=== PATIENT | female | born 1970 | race Caucasian/White ===

== ENCOUNTER 2024-04-12 11:34 | Observation (INO) ==
--- NOTE | 2024-04-12 15:14 | XRay Report ---
XR chest 1V portable Genie Riddle CLINICAL HISTORY: Chest pain TECHNIQUE: Single frontal radiograph of the chest was obtained. Comparison: None available at the time of this dictation. FINDINGS: No lines and tubes are seen. The cardiomediastinal silhouette is normal. The lungs are clear. No evid ence of pleural effusion or pneumothorax. IMPRESSION: No acute chest disease. ACT 112: Negative or not required by law. Electronically signed by: Kayden Walsh M.D. 04/12/2024 12:52 PM
--- NOTE | 2024-04-12 15:18 | History & Physical Report ---
<Statement entered by Carlos Umana, - 04/12/24 18:03> I have seen and examined the patient and have discussed the case with the provider above. I have reviewed the advanced practitioner's documentation, and I agree with, and take responsibility for that plan of care. Patient was seen and examined while still in the ED. Patient extremely anxious. Exam: Generally: Nontoxic Lungs: clear CV: S1-S2 Assessment: Patient with acute chest pain and mildly elevated troponin in the setting of severe anxiety and recent discontinuation of her medications. Plan of care as outlined below Date of Service April 12, 2024 Assessment & Plan (1) Chest pain: Plan: Sinus tachycardia Patient is 53 year old female with PMH HTN, depression, anxiety, asthma, MS, hypothyroidism, chronic pain on chronic opioids, interstitial cystitis, tobacco use presented to ER with c/o chest pain x 1 day. EKG sinus tachycardia, ST depression anterior lateral leads Was given 324 mg aspirin and route. Upon ER arrival noted to have sinus tachycardia and patient appeared anxious. Was given Ativan in ER with reported resolution of chest discomfort D-dimer negative. Troponin 42-->35 R/O ACS. Risk factors: HTN, tobacco use, FH. DDx: anxiety, recent disc ontinuation of medications Repeat EKG in am Will trend troponin Echo Lipid panel in am. Plan to resume atorvastatin Daily aspirin Will likely need to resume metoprolol tartrate Cardiology consult (2) Anxiety and depression: (3) Suicidal ideations: Plan: Denies recent suicide attempt. Passive reports of feeling better off but denies current plan Voluntarily admitted at the [facility] place on suicide precautions for now Psychiatry consult Patient was on citalopram, bupropion. Self stopped 1 week ago. Patient voices does not want to be on these medications currently. Will hold for now pending psychiatry recommendations Plan to resume lorazepam on as-needed basis. Previously was using scheduled however has not used for the past week Will start trial of trazodone at bedtime for difficulties with sleep (4) Hypothyroidism: (5) Abnormal TSH: Plan: TSH: 0.05. Patient stopped levothyroxine 1 week ago. Would plan to hold levothyroxine Will need TSH monitored (6) HTN (hypertension): Plan: Previously prescribed metoprolol tartrate 50 mg twice daily however this has not been filled since January. Patient states has not taken for the past week Monitor BP As above consider restarting metoprolol tartrate (7) HLD (hyperlipidemia): Plan: Restart atorvastatin (8) Multiple sclerosis: Plan: History multiple sclerosis diagnosed 2020 on MRI per outpatient neurology records. Reported chronic memory issues Not on disease modifying medications per patient preference Follows with neurolog[place] [facility] Patient reports ongoing memory issues but denies any other neurological symptoms at this time (9) Chronic pain: Plan: Reported chronic right ankle and foot pain and chronic suprapubic pain, interstitial cystitis On chronic oxycodone. Patient states has not taken for the past week. Will hold and monitor at this time (10) Asthma: Plan: No noted wheezing. No apparent asthma exacerbation currently Continue home inhalers Will do Xopenex as needed for now secondary to tachycardia (11) Interstitial cystitis: Plan: Continue Elmiron (12) Tobacco abuse: Plan: Nicotine patch Smoking cessation encouraged (13) GERD (gastroesophageal reflux disease): Plan: Reported prior reflux symptoms. Was on PPI in past. Patient states has not been taking recently and feels has not had reflux symptoms recently Monitor. May need to consider H2 mariano or PPI DVT Prophylaxis Lovenox SQ Full Code as per discussion with pt Follows with Dr Castorena in [place], [place] for routine care Pt was seen and care coordinated with Dr Umana. See addendum I spent a total of 80 minutes reviewing notes, outpatient records, labs, medication, coordinating, documenting and providing care for this patient excluding time spent in the performance of separately billed services. History of Present Illness Chief Complaint: CP Primary Care Provider: NO PCP Patient is 53 year old female with PMH HTN, depression, anxiety, asthma, MS, hypothyroidism, chronic pain on chronic opioids, interstitial cystitis, tobacco use presented to ER with c/o chest pain x 1 day. History obtained from patient and outpatient chart review. Patient reports SOB with exertion x 6 months that She feels is secondary to sedentary lifestyle. Patient states yesterday was [facility] with her boyfriend. She states while driving they got lost several times and her boyfriend was becoming angry. She reports she started to get anxious and started having left chest squeezing and felt that her neck was "being pulled down". She also felt like her heart was pounding. She denies noting irregular rhythm sensation. She states police escorted them to the [facility]. Patient reports has had intermittent episodes of heart pounding and squeezing sensation to left chest since being at the [facility] last night which continued this morning. She told staff this morning and they recommended ER evaluation. Denies history chest pain in past. Patient unsure of cardiac history or cardiac diagnoses but states was placed on metoprolol tartrate by PCP for what she believes as blood pressure control. Patient states one week ago she decided to stop taking all her medication. She reports history depression and suicidal ideations and behaviors in past. Per outpatient records history of Seroquel overdose as suicide attempt in past. Patient reports son one year ago. After that describes panic attacks with squeezing sensation of neck and feeling very anxious. Reports has counselor and states has worked through things and hasn't been feeling as anxious. She is on lorazepam TID and states over past several months has been using at bedtime only. Reports past 6 months with worsening depression. Feels down and sad. Intermittent crying. Loss of interest in doing things. Has been sitting or lying in bed all day. Only gets up to use bathroom. She has reports has only been showering once a month. States spoke to her counselor yesterday and decided to seek treatment at the [facility] for depression. Patient states she checked herself into the [facility] yesterday. She states she often feels that she wants to and wants to be with her son. She denies any recent suicide attempt and denies any recent or current plan to harm herself. Patient reports chronic right ankle pain and chronic suprapubic pain and is on oxycodone TID. States has chronic wheezing. Denies fever/chills, diaphoresis, N/V/D/C, KIMBROUGH, dizziness, syncope, vision changes, orthopnea, cough, sore throat, choking, otalgia, rhinorrhea, increased abdominal pain, paresthesias, weakness, extremity edema, rashes, hematuria, urinary frequency. Allergies Allergy/AdvReac Type Severity Reaction Status Date / Time sumatriptan [From Imitrex] Allergy Chest Pain Verified 04/12/24 15:23 morphine AdvReac agitation Verified 04/12/24 16:40 sulfamethoxazole AdvReac nausea, Verified 04/12/24 15:23 [From vomiting Sulfamethoxazole-Trimethoprim] trimethoprim AdvReac nausea, Verified 04/12/24 15:23 [From vomiting Sulfamethoxazole-Trimethoprim] Home Medications Medication Instructions Recorded Confirmed Type albuterol sulfate 90 mcg/actuation 2 puff inhalation Q4H 04/12/24 04/12/24 History aerosol inhaler aspirin 81 mg capsule 81 mg PO DAILY 04/12/24 04/12/24 History atorvastatin 40 mg tablet 40 mg PO DAILY 04/12/24 04/12/24 History bupropion HCl 150 mg tablet,12 hr 150 mg PO BID 04/12/24 04/12/24 History sustained-release cholecalciferol (vitamin D3) 1,250 50,000 unit PO WK 04/12/24 04/12/24 History mcg (50,000 unit) capsule citalopram 40 mg tablet 40 mg PO DAILY 04/12/24 04/12/24 History estradiol 2 mg tablet 2 mg PO DAILY 04/12/24 04/12/24 History fluticasone 250 mcg-salmeterol 50 1 inh inhalation DAILY 04/12/24 04/12/24 History mcg/dose blistr powdr for inhalation ipratropium 20 mcg-albuterol 100 2 puff inhalation BID 04/12/24 04/12/24 History mcg/actuation mist for inhalation (Combivent Respimat) levothyroxine 175 mcg tablet 175 mcg PO DAILY 04/12/24 04/12/24 History lorazepam 0.5 mg tablet 0.5 mg PO TID 04/12/24 04/12/24 History metoprolol tartrate 50 mg tablet 50 mg PO BID 04/12/24 04/12/24 History oxycodone 10 mg tablet 20 mg PO QID 04/12/24 04/12/24 History pentosan polysulfate sodium 100 mg 100 mg PO BID 04/12/24 04/12/24 History capsule (Elmiron) Past Med/Surg History Problem List (Updated 04/12/24 @ 21:27 by Tana Johnson PA-C) Abnormal TSH Chest pain Interstitial cystitis Asthma Tobacco abuse Chronic pain Hypothyroidism Multiple sclerosis GERD (gastroesophageal reflux disease) HLD (hyperlipidemia) HTN (hypertension) Suicidal ideations Anxiety and depression Medical History (Updated 04/12/24 @ 21:27 by Tana Johnson PA-C) History of electroconvulsive therapy 10/18/2013- Dr Jason Crespo [place] [facility] 10/21/2013 - Dr Zachariah Haddad at [facility] Surgical History (Updated 04/12/24 @ 15:25 by Tana Johnson PA-C) History of section History of hysterectomy History of appendectomy Family History (Updated 04/12/24 @ 15:26 by Tana Johnson PA-C) Father Heart disease [place] Other Depression Diabetes Hypertension Social History (Updated 04/12/24 @ 21:03 by Tana Johnson PA-C) Smoking Status: Current every day smoker Tobacco Type: Cigarettes packs per day: 1; Second Hand Exposure: No; Do You Dip or Chew Tobacco: No; Hx Alcohol Use: No Hx Substance Use: No Beliefs That Will Affect Care: None Current Living Situation: Alone Feels Safe at Home: Yes Assistive Devices: None Review of Systems Review of Systems: All systems reviewed & are unremarkable except as noted in HPI & below Physical Exam Physical Exam: General: no distress, WDWN Head: normocephalic, atraumatic Eyes: PERRL, EOM's intact, conjunctiva non-injected, anicteric ENT: normal inspection external ears, nose, mucous membranes moist Neck: supple, trachea midline, non-tender Lungs: clear, no respiratory distress, no wheezing/rhonchi/rales CV: +regular rhythm +tachycardia rate 102, no murmur, no pretibial edema Chest wall: no skin discoloration, +tenderness to palpation left chest wall Abd: normal BS, soft, non-tender Ext: no cyanosis, no calf tenderness Neuro: A&O x 3, no focal deficits noted, +anxious affect, becomes tearful Skin: warm, dry Results & Data Results & Data Vital Signs (Past 12 Hours) Short CBC 04/12/24 Range/Units 12:26 WBC 10.25 (4.8-10.8) K/ul Hgb 15.2 (12.0-16.0) g/dl Hct 43.6 (37.0-47.0) % Plt Count 251 (130-400) K/uL BMP 04/12/24 12:26 Sodium 141 Potassium 3.5 Chloride 107 Carbon Dioxide 23 BUN 18 Creatinine 1.09 Glucose 118 H Calcium 9.6 Liver Function 04/12/24 Range/Units 12:26 Total Bilirubin 0.9 (0.2-1.0) mg/dl AST 14 (13-39) U/L ALT 12 (7-52) U/L Alkaline Phosphatase 83 (34-104) U/L Albumin 4.6 (3.4-5.0) gm/dl Laboratory Results Chest X-Ray 04/12/24 00:00 XR chest 1V portable Genie Riddle CLINICAL HISTORY: Chest pain TECHNIQUE: Single frontal radiograph of the chest was obtained. Comparison: None available at the time of this dictation. FINDINGS: No lines and tubes are seen. The cardiomediastinal silhouette is normal. The lungs are clear. No evidence of pleural effusion or pneumothorax. IMPRESSION: No acute chest disease. ACT 112: Negative or not required by law. Electronically signed by: Kayden Walsh M.D. 04/12/2024 12:52 PM
[2024-04-12] MEDS: ASPIRIN CHEW 324 MG ONE (16:22)
[2024-04-12] MEDS: LORazepam 1 MG/1 ML SYR ED Inj Use ONE (16:22)
[2024-04-12 16:40] LABS: INR 1.2 (0.9-1.1); Partial Thromboplastin Time 26 Seconds (21-31); Prothrombin Time 13.1 Seconds (9.0-12.0)
[2024-04-12] MEDS: NICOTINE 21 MG/24 HR TDSY TD SCH (17:00)
[2024-04-12 17:28] LABS: Troponin I High Sensitivity 35.2 pg/ml (0-14)
[2024-04-12 17:37] LABS: D Dimer < 190 ug/L FEU (0-500)
[2024-04-12 17:38] LABS: Thyroid Stimulating Hormone 0.056 uIu/ml (0.300-4.500)
[2024-04-12 17:55] LABS: Eosinophils # (auto) 0.13 K/uL (0.00-0.50); Eosinophils % (auto) 1.3 %; Hematocrit (blood only) 43.6 % (37.0-47.0); Hemoglobin 15.2 g/dl (12.0-16.0); Immature Granulocytes # (auto) 0.09 K/uL (0.01-0.20); Immature Granulocytes % (auto) 0.9 %; Lymphocytes # (auto) 4.19 K/uL (1.20-3.40); Lymphocytes % (auto) 40.9 %; Mean Corpuscular Hgb Conc 34.9 g/dL (32.0-36.0); Mean Corpuscular Volume 91.8 fL (80.0-100.0); Monocytes # (auto) 1.03 K/uL (0.11-0.59); Neutrophils # (auto) 4.71 K/uL (1.40-6.50); Neutrophils % (auto) 45.9 %; Platelet Count 251 K/uL (130-400); RDW Coefficient of Variation 11.5 % (11.5-14.5); RDW Standard Deviation 38.8 fL (36.4-46.3); Red Blood Count 4.75 M/uL (4.20-5.40); White Blood Count 10.25 K/ul (4.8-10.8)
[2024-04-12 18:12] LABS: T4 Free Thyroxine 1.2 ng/dl (0.61-1.60)
[2024-04-12] MEDS ORDERED: ONDANSETRON INJ 2 MG/ML 2 ML VIAL IV PRN (18:43)
[2024-04-12] MEDS ORDERED: LEVALBUTEROL 1.25 MG/3 ML NEB NEB PRN (18:43)
[2024-04-12] MEDS ORDERED: POLYETHYLENE (MIRALAX) 17 GM PACK PO PRN (18:43)
[2024-04-12] MEDS: ENOXAPARIN INJ 40 MG/0.4 ML SYR SQ SCH (20:03)
[2024-04-12] MEDS: PENTOSAN POLYSULFATE SODIUM 100 MG CAP PO SCH (20:03)
[2024-04-12] MEDS: traZODone HCL 50 MG TAB PO SCH (20:04)
[2024-04-12] MEDS: LORazepam 0.5 MG TAB PO PRN (20:06)
[2024-04-12 20:13] LABS: Albumin Globulin Ratio 1.4 (0.9-2); Albumin Level 4.6 gm/dl (3.4-5.0); BUN Creatinine Ratio 16.5 (10-20); Bilirubin,Total 0.9 mg/dl (0.2-1.0); Calcium 9.6 mg/dl (8.6-10.3); Creatinine Clr Calc Pharmacy 54.6 ml/min; Est GFR (African American) 66.2 ml/min; Est GFR (Non-African American) 57.1 ml/min; Globulin 3.4 gm/dl (2.5-4.0); Potassium 3.5 mmol/L (3.5-5.1); Troponin I High Sensitivity 42.1 pg/ml (0-14)
[2024-04-12] MEDS: METOPROLOL TARTRATE 25 MG TAB PO ONE (20:29)
[2024-04-12] MEDS: ACETAMINOPHEN 325 MG TAB PO PRN (21:20)
--- OUTSIDE RECORDS SUMMARY | 2024-04-12 22:08 | External Medical Summary | Summary of Care ---
Author Name Unknown Organization [facility] [address] [place] [address] Phone [phone] Care Team Providers Care Fishing Vessel Captain Name Role Phone Jordan Castorena MD Primary Care Provider + Reason for Visit * Reason Onset Date Comments Appointment Canceled 11/10/2023 Encounter Details Date Type Department Care Team ([facility] st Contact Info) Description 11/10/2023 Telephone Urogynecology [facility] [address], [place] [id number] Justino Peñaloza MD [address] [place] [address] Appointment Canceled Allergies Active Allergy Reactions Criticality Noted Date Comments Acetaminophen-Codeine Other (Please comment) 07/16/2013 Unable to sleep Amitriptyline 04/12/2022 Diphenhydramine Hcl 04/28/2013 allergic to IV Benadryl Ciprofloxacin 04/28/2013 Becomes "jittery" Propoxyphene N-Acetaminophen Other (Please comment) 07/16/2013 Unable to sleep Sumatriptan Base 05/01/2013 chest pain Droperidol 2004 Morphine Low 04/12/2022 Other reaction(s): irritability Naproxen Sodium Other (Please comment) 07/16/2013 sleeplessness Ol-Vkxwnbtztk-Vriqlvdvle hen Other (Please comment) 07/16/2013 Unable to sleep Sulfamethoxazole-Trimeth oprim Nausea/vomiting Medium 11/02/2022 Other reaction(s): GI Intolerance documented as of this encounter (statuses as of 11/10/2023) Medications Medication Sig Dispensed Refills Start Date End Date Status CITALOPRAM HYDROBROMIDE 40 MG PO TABSIndications:Depr essive disorder, not elsewhere classified 1 Tab Oral Daily 15 Tab 1 05/01/2013 Active Additional Information Patient taking differently: (No route reported), Informant: Patient, Reported on 08/15/2022 ELMIRON 100 MG PO CAPSIndications:Napper Runner dion interstitial cystitis 1 capsule 3 times a day 90 Cap 6 11/26/2013 Active Additional Information Patient taking differently:OralBID (.AM/PM), Informant: Patient, Reported on 11/02/2022 OXYCODONE HCL 20 MG PO TABS Take by mouth 4 times a day. 0 Active omeprazole (PRILOSEC) 40 MG CPDR Take 1 Capsule by mouth in the morning. 0 Active Albuterol Sulfate HFA 108 (90 Base) MCG/ACT Inhalation Aerosol Solution Inhale 2 Puffs by mouth every 6 hours as needed. 0 Active Ipratropium-Albutero l 20-100 MCG/ACT Inhalation Aerosol Solution Inhale 1 Puff by mouth in the morning and 1 Puff at noon and 1 Puff in the evening and 1 Puff before bedtime. 0 Active Estradiol 2 MG TabletIndications:Ho t flashes TAKE ONE TABLET BY MOUTH ONE TIME DAILY 30 Tab 11 05/11/2018 Active buPROPion HCl 100 MG Oral Tablet Take 1 Tablet by mouth in the morning and 1 Tablet before bedtime. 0 Active Atorvastatin Calcium 40 MG Oral Tablet (Lipitor) Take 1 Tablet by mouth in the morning. 0 Active Vitamin D3 1.25 MG (63052 UT) Oral Tablet Take 1.25 mg by mouth once a week. 0 Active LORazepam 0.5 MG Oral Tablet (Ativan) Take 1 Tablet by mouth 2 times a day as needed. 0 Active Fluticasone-Salmeter ol 250-50 MCG/DOSE Inhalation Aerosol Powder Breath Activated (Advair Diskus) Inhale 1 Puff by mouth in the morning. 0 Active Promethazine HCl 25 MG Oral Tablet (Phenergan) Take 1 Tablet by mouth as needed for Nausea. 0 Active Aspirin 81 MG Oral Tablet Delayed Release Take 1 Tablet by mouth in the morning. 0 Active Multi Vitamin Daily Oral Tablet Take 1 Tablet by mouth 2 times a day. 0 Active Meclizine HCl 25 MG Oral Tablet (Antivert) Take 1 Tablet by mouth 2 times a day as needed for Dizziness. 60 Tablet 1 11/02/2022 Active methylPREDNISolone 4 MG Oral Tablet Therapy Pack (Medrol Dosepack)Indications :Hip injury, left, initial encounter follow package directions 21 Tablet 0 04/12/2023 Active Levothyroxine Sodium 175 MCG Oral Tablet (Levoxyl)Indications :Hypothyroidism, unspecified type TAKE 1 TABLET BY MOUTH EVERY DAY IN THE MORNING 90 Tablet 0 08/22/2023 Active documented as of this encounter (statuses as of 11/10/2023) Active Problems Problem Noted Date Diagnosed Date Asthma 08/15/2022 Congestive heart failure 08/15/2022 Hot flashes 03/08/2017 Encounter for gynecological examination without abnormal finding 03/08/2017 Overdose 10/15/2013 Overview: S/p overdose of Seroquel as suicide attempt Partner relationship problems 10/15/2013 Unemployment 10/15/2013 Financial problems 10/15/2013 Homelessness 10/15/2013 Suicidal behavior 10/15/2013 History of alcohol abuse 10/15/2013 Periumbilical abdominal pain 09/01/2009 Overview: ICD-10 update of inactive term Irritable bowel syndrome 07/28/2009 Infectious colitis, enteritis, and gastroenterit is 07/20/2009 ADVANCE DIRECTIVE INFORMATION 08/27/2007 Overview: No, Advance Directive brochure offered , patient declined. PAIN ABDOMEN( Left Lower Quadrant) 02/15/2007 Abdominal pain, other specified site 02/15/2007 Chronic interstitial cystitis 02/02/2007 Hypothyroidism Major depressive disorder Overview: ICD-10 update of inactive term Nausea Overview: ICD-10 update of inactive term documented as of this encounter (statuses as of 11/10/2023) Immunizations Name Administration Dates Next Due Pneumococcal Polysaccharide PPV23 (Pneumovax) Seasonal Influenza, Split, IIV3, With Preserve, Inj 06/25/2013,07/28/2009 documented as of this encounter Social History Tobacco Use Types Packs/Day Years Used Date Smoking Tobacco: Every Day Cigarettes 1 20 Smokeless Tobacco: Never Alcohol Use Standard Drinks/Week Comments Yes 0 (1 standard drink = 0.6 oz pure alcohol) occasionally - once a month - beer PHQ-2 Answer Date Recorded PHQ Adult Total Score 20 08/30/2021 Hunger Vital Sign Answer Date Recorded Within the past 12 months, y ou worried that your food would run out before you got the money to buy more. Never true 11/10/19 23 Within the past 12 months, t he food you bought just didn't last and you didn't have money to get more. Never true 11/10/2022 Sex and Gender Information Value Date Recorded Sex Assigned at Female 02/18/2022 3:12 PM EDT Gender Identity Female 02/18/2022 3:12 PM EDT Sexual Orientation Straight 02/18/2022 3: 12 PM EDT Job Start Date Occupation Industry Not on file Not on file Not on file documented as of this encounter Miscellaneous Notes * Telephone Encounter - Gabi Estrada OSA - 11/10/2023 9:44 AM EST Called pt to let her know that her appt on 11/13/23 was canceled due to the provider not in clinic that day also called to reschedule this appt with Anju . There was no answer when I called left pt a voicemail when I called. Will send pt a message through her Hooplahart documented in this encounter Plan of Treatment Health Maintenance Due Date Last Done Comments DISCUSS TOBACCO CESSATION (REFER TO SMARTSET #3291) 1968 DTaP,Tdap,and Td Vaccines (1 - Tdap) 12/13/1987 Hepatitis B (1 of 3 - 19+ 3-dose series) 12/13/1987 Pneumococcal Vaccine: Pediatrics (0 to 5 Years) and At-Risk Patients (6 to 64 Years) (2 of 2 - PCV) 07/28/2010 07/28/2009 Cologuard 2013 Fecal Occult Blood Test 2013 Sigmoidoscopy 2013 LUNG CANCER SCREENING - USE SMARTSET 09083 2018 Zoster Vaccines (1 of 2) 2018 Colonoscopy 07/28/2019 07/28/2009 Colorectal Cancer Screening 07/28/2019 Depression, Most Recent Score >= 10 (will fire each visit until score < 10) 08/31/2021 08/30/2021 *SPIROMETRY ONCE FOR ASTHMA-ADULT 08/18/2022 Mammogram 02/18/2023 02/18/2022 COVID-19 Vaccine ( season) 2023 03/19/2021, 02/14/2021 Influenza Vaccine (FLU shot) (#1) 2023 06/25/2013, 07/28/2009 TSH 07/21/2023 07/21/2022, 02/24, 12/03/2021, Additional history exists Lipid Panel 08/02/2026 08/02/2021 GARDASIL-HPV IMMUNIZATION SERIES Aged Out No longer eligible based on patient's age to complete this topic MENINGOCOCCAL (MENACTRA/MENVEO) Aged Out No longer eligible based on patient's age to complete this topic documented as of this encounter Medical Devices Not on filedocumented as of this encounter Advance Directives Documents on File Type Date Recorded Patient Family Day Carer Expl anation Advance Directives and Living Will 11/06/2006 Power of Medication Technician 11/06/2006 Latest Code Status on File Code Status Date Activated Date Inactivated Comments Full Code 10/15/2013 12:13 PM 10/22/2013 5:39 PM This order reflects the patients wishes and were consensually agreed upon. Code Status History Code Status Date Activated Date Inactivated Comments Full Code 10/12/2013 8:52 PM 10/15/2013 11:52 AM This order reflects the patients wishes and were consensually agreed upon. Question Answer Comments Discussion of Advance Directives occurred with: Not Discussed Does the patient have a Living Will? No Does the patient have Health Care Power of Medication Technician? No Full Code 04/28/2013 8:26 PM 05/01/2013 9:16 PM This or makayla reflects the patients wishes and were consensually agreed upon. Full Code 04/28/2013 8:18 PM 04/28/2013 8:26 PM This or makayla reflects the patients wishes and were consensually agreed upon. Full Code 07/27/2009 7:51 PM 07/28/2009 10:53 PM This order reflects the patients wishes and were consensually agreed upon. Question Answer Comments Discussion of Advance Directives occurred with: Patient Does the patient have a Living Will? No Does the patient have Health Care Power of Medication Technician? No Care Teams Fishing Vessel Captain Relationship Specialty Start Date End Date Jordan Castorena MD [address] [place] [id number] PCP - General Internal Medicine 04/29/13 documented as of this encounter
--- OUTSIDE RECORDS SUMMARY | 2024-04-12 22:08 | External Medical Summary | Summary of Care ---
Author Name Unknown Organization [facility] Address [address] [place] [address] Care Team Providers Care Amortization Schedule Clerk Name Role Phone Jordan Castorena MD Primary Care Provider + Reason for Visit * Reason Comments Pain Encounter Details Date Type Department Care Team ([facility] st Contact Info) Description 02/22/2024 1:00 PM EDT Office Visit Urgent Care, [place] [facility] [address] [facility] [address] [place] [id number] Marcus Spivey PA-C [address] [facility] [address] [place] [address] Acute pain of left knee* Allergies Active Allergy Reactions Criticality Noted Date Comments Acetaminophen-Codeine Other (Please comment) 07/16/2013 Unable to sleep Amitriptyline 04/12/2022 Diphenhydramine Hcl 04/28/2013 allergic to IV Benadryl Ciprofloxacin 04/28/2013 Becomes "jittery" Propoxyphene N-Acetaminophen Other (Please comment) 07/16/2013 Unable to sleep Sumatriptan Base 05/01/2013 chest pain Droperidol 2004 Morphine Low 04/12/2022 Other reaction(s): irritability Naproxen Sodium Other (Please comment) 07/16/2013 sleeplessness Mk-Xoajlslwpb-Oejgjqpbia hen Other (Please comment) 07/16/2013 Unable to sleep Sulfamethoxazole-Trimeth oprim Nausea/vomiting Medium 11/02/2022 Other reaction(s): GI Intolerance documented as of this encounter (statuses as of 02/22/2024) Medications Medication Sig Dispensed Refills Start Date End Date Status CITALOPRAM HYDROBROMIDE 40 MG PO TABSIndications:Depr essive disorder, not elsewhere classified 1 Tab Oral Daily 15 Tab 1 05/01/2013 Active Additional Information Patient taking differently: (No route reported), Informant: Patient, Reported on 08/15/2022 ELMIRON 100 MG PO CAPSIndications:Bodybuilder dion interstitial cystitis 1 capsule 3 times a day 90 Cap 6 11/26/2013 Active Additional Information Patient taking differently:OralBID (.AM/PM), Informant: Patient, Reported on 11/02/2022 OXYCODONE HCL 20 MG PO TABS Take by mouth 4 times a day. Active omeprazole (PRILOSEC) 40 MG CPDR Take 1 Capsule by mouth in the morning. Active Albuterol Sulfate HFA 108 (90 Base) MCG/ACT Inhalation Aerosol Solution Inhale 2 Puffs by mouth every 6 hours as needed. Active Ipratropium-Albutero l 20-100 MCG/ACT Inhalation Aerosol Solution Inhale 1 Puff by mouth in the morning and 1 Puff at noon and 1 Puff in the evening and 1 Puff before bedtime. Active Estradiol 2 MG TabletIndications:Ho t flashes TAKE ONE TABLET BY MOUTH ONE TIME DAILY 30 Tab 11 05/11/2018 Active buPROPion HCl 100 MG Oral Tablet Take 1 Tablet by mouth in the morning and 1 Tablet before bedtime. Active Atorvastatin Calcium 40 MG Oral Tablet (Lipitor) Take 1 Tablet by mouth in the morning. Active Vitamin D3 1.25 MG (16883 UT) Oral Tablet Take 1.25 mg by mouth once a week. Active LORazepam 0.5 MG Oral Tablet (Ativan) Take 1 Tablet by mouth 2 times a day as needed. Active Fluticasone-Salmeter ol 250-50 MCG/DOSE Inhalation Aerosol Powder Breath Activated (Advair Diskus) Inhale 1 Puff by mouth in the morning. Active Promethazine HCl 25 MG Oral Tablet (Phenergan) Take 1 Tablet by mouth as needed for Nausea. Active Aspirin 81 MG Oral Tablet Delayed Release Take 1 Tablet by mouth in the morning. Active Multi Vitamin Daily Oral Tablet Take 1 Tablet by mouth 2 times a day. Active Meclizine HCl 25 MG Oral Tablet (Antivert) Take 1 Tablet by mouth 2 times a day as needed for Dizziness. 60 Tablet 1 11/02/2022 Active methylPREDNISolone 4 MG Oral Tablet Therapy Pack (Medrol Dosepack)Indications :Hip injury, left, initial encounter follow package directions 21 Tablet 04/12/2023 Active Additional Information Patient not taking.Reported on 02/22/2024 Levothyroxine Sodium 175 MCG Oral Tablet (Levoxyl)Indications :Hypothyroidism, unspecified type TAKE 1 TABLET BY MOUTH EVERY DAY IN THE MORNING 90 Tablet 08/22/2023 Active Metoprolol Tartrate 50 MG Oral Tablet (Lopressor) Take 1 Tablet by mouth in the morning and 1 Tablet before bedtime. 02/04/2024 Active documented as of this encounter (statuses as of 02/22/2024) Active Problems Problem Noted Date Diagnosed Date [...] as of this encounter (statuses as of 02/22/2024) Immunizations Name Administration Dates Next Due Pneumococcal [...] on file documented as of this encounter Last Filed Vital Signs Vital Sign Reading Time Taken Comments Blood Pressure 112/75 02/22/2024 1:10 PM EDT Pulse 83 02/22/2024 1:10 PM EDT Temperature 36.3 C (97.3 F) 02/22/2024 1:10 PM ED T Respiratory Rate 18 02/22/2024 1:10 PM EDT Oxygen Saturation 96% 02/22/2024 1:10 PM EDT Inhaled Oxygen Concentration - - Weight 73.9 kg (163 lb) 02/22/2024 1:10 PM EDT Height - - Body Mass Index 25.53 11/02/2022 1:52 PM EST documented in this encounter Patient Instructions * Patient Instructions* Marcus Spivey PA-C - 02/22/2024 1:39 PM EDT Get plenty of Rest Drink enough fluids Follow-up with PCP if your issue has not resolved. Go to the ER if symptoms are worsening. Use ice over the affected area every few hours as needed. Do not apply ice directly to the skin. Elevate limb whenever possible to help reduce swelling. You have been given a brace for your condition. Use it as directed. Your x-ray was interpreted in the office today and will be sent to a radiologist for final reading. If there are any discrepancies, you will be notified. documented in this encounter Progress Notes * Marcus Spivey PA-C - 02/22/2024 1:38 PM EDT SUBJECTIVE Genie Riddle is a 53 year old female who presents with a chief complaint of: Chief Complaint Patient presents with Pain . Nursing Notes: Francie Sheehan, RT (R) 02/22/24 1311 Sign at exiting of workspace The patient is being seen today for left knee pain. She said pain started about 3 days ago and painis getting worse. Patient presents to the office complaining of left knee pain that started about 3 days ago. The pain is getting worse. It is worse with squatting and standing and going up and down stairs. No clicking, locking or giving out on her but does feel like she needs to stretch it. She denies any injury tothe knee. She states that it feels a little swollen but there is no bruising or anything. Review of Systems Constitutional: Negative for fever. Musculoskeletal: Positive for arthralgias. PROBLEM LIST Patient Active Problem List Diagnosis ADVANCE DIRECTIVE INFORMATION Chronic interstitial cystitis PAIN ABDOMEN( Left Lower Quadrant) Abdominal pain, other specified site Infectious colitis, enteritis, and gastroenteritis Hypothyroidism Major depressive disorder Nausea Irritable bowel syndrome Periumbilical abdominal pain Overdose Partner relationship problems Unemployment Financial problems Homelessness Suicidal behavior History of alcohol abuse Hot flashes Encounter for gynecological examination without abnormal finding Asthma Congestive heart failure (HCC) SOCIAL HISTORY Social History Socioeconomic History Marital status: Spouse name: Not on file Number of children: 3 Years of education: Not on file Highest education level: Not on file Occupational History Occupation: Superintendent Pressure Employer: [employer] Tobacco Use Smoking status: Every Day Current packs/day: 1.00 Average packs/day: 1 pack/day for 20.0 years (20.0 ttl pk-yrs) Types: Cigarettes Smokeless tobacco: Never Vaping Use Vaping status: Never Used Substance and Sexual Activity Alcohol use: Yes Comment: occasionally - once a month - beer Drug use: No Comment: "I'm thinking about it, smoking pot" Sexual activity: Yes Partners: Male Other Topics Concern Not on file Social History Narrative Not on file Social Determinants of Health Financial Resource Strain: Not on file Food Insecurity: No Food Insecurity (11/10/2022) Hunger Vital Sign Worried About Running Out of Food in the Last Year: Never true Ran Out of Food in the Last Year: Never true Transportation Needs: Not on file Physical Activity: Not on file Stress: Not on file Social Connections: Not on file Intimate Partner Violence: Not on file Housing Stability: Not on file CURRENT MEDICATIONS Current Outpatient Medications: Metoprolol Tartrate 50 MG Oral Tablet (Lopressor), Take 1 Tablet by mouth in the morning and 1 Tablet before bedtime., Disp: , Rfl: Levothyroxine Sodium 175 MCG Oral Tablet (Levoxyl), TAKE 1 TABLET BY MOUTH EVERY DAY IN THE MORNING, Disp: 90 Tablet, Rfl: 0 methylPREDNISolone 4 MG Oral Tablet Therapy Pack (Medrol Dosepack), follow package directions (Patient not taking: Reported on 02/22/2024), Disp: 21 Tablet, Rfl: 0 Meclizine HCl 25 MG Oral Tablet (Antivert), Take 1 Tablet by mouth 2 times a day as needed for Dizziness., Disp: 60 Tablet, Rfl: 1 Aspirin 81 MG Oral Tablet Delayed Release, Take 1 Tablet by mouth in the morning., Disp: , Rfl: Multi Vitamin Daily Oral Tablet, Take 1 Tablet by mouth 2 times a day., Disp: , Rfl: Promethazine HCl 25 MG Oral Tablet (Phenergan), Take 1 Tablet by mouth as needed for Nausea. (Patient not taking: Reported on 02/22/2024), Disp: , Rfl: Atorvastatin Calcium 40 MG Oral Tablet (Lipitor), Take 1 Tablet by mouth in the morning., Disp: , Rfl: Fluticasone-Salmeterol 250-50 MCG/DOSE Inhalation Aerosol Powder Breath Activated (Advair Diskus), Inhale 1 Puff by mouth in the morning., Disp: , Rfl: LORazepam 0.5 MG Oral Tablet (Ativan), Take 1 Tablet by mouth 2 times a day as needed., Disp: , Rfl: Vitamin D3 1.25 MG (09229 UT) Oral Tablet, Take 1.25 mg by mouth once a week., Disp: , Rfl: buPROPion HCl 100 MG Oral Tablet, Take 1 Tablet by mouth in the morning and 1 Tablet before bedtime., Disp: , Rfl: Estradiol 2 MG Tablet, TAKE ONE TABLET BY MOUTH ONE TIME DAILY , Disp: 30 Tab, Rfl: 11 Albuterol Sulfate HFA 108 (90 Base) MCG/ACT Inhalation Aerosol Solution, Inhale 2 Puffs by mouth every 6 hours as needed., Disp: , Rfl: Ipratropium-Albuterol 20-100 MCG/ACT Inhalation Aerosol Solution, Inhale 1 Puff by mouth in the morning and 1 Puff at noon and 1 Puff in the evening and 1 Puff before bedtime., Disp: , Rfl: omeprazole (PRILOSEC) 40 MG CPDR, Take 1 Capsule by mouth in the morning., Disp: , Rfl: OXYCODONE HCL 20 MG PO TABS, Take by mouth 4 times a day., Disp: , Rfl: ELMIRON 100 MG PO CAPS, 1 capsule 3 times a day (Patient taking differently: Take by mouth 2 times a day.), Disp: 90 Cap, Rfl: 6 CITALOPRAM HYDROBROMIDE 40 MG PO TABS, 1 Tab Oral Daily (Patient taking differently: No sig reported), Disp: 15 Tab, Rfl: 1 ALLERGIES Review of patient's allergies indicates: Allergen Reactions Sulfamethoxazole-Trimethoprim Nausea/vomiting Other reaction(s): GI Intolerance Acetaminophen-Codeine Other (Please comment) Unable to sleep Amitriptyline Benadryl [Diphenhydramine Hcl] allergic to IV Benadryl Ciprofloxacin Becomes "jittery" Darvocet [Propoxyphene N-Acetaminophen] Other (Please comment) Unable to sleep Imitrex [Sumatriptan Base] chest pain Inapsine [Droperidol] Naproxen Sodium Other (Please comment) sleeplessness Nyquil Cold & [Zd-Oltocwmakp-Bsyjfdonlumht] Other (Please comment) Unable to sleep Morphine Other reaction(s): irritability PHYSICAL EXAM Physical Exam Vitals and nursing note reviewed. Constitutional: Appearance: Normal appearance. Musculoskeletal: General: Tenderness (Left lateral medial knee slightly tender to palpation. Proximal calf muscle and distal hamstrings tender and tight. Negative Homans test, no lower leg swelling.) present. Neurological: Mental Status: She is alert. X-ray shows no signs of bony abnormality. Pending radiology review. ASSESSMENT AND PLAN Genie was seen today for pain. Diagnoses and all orders for this visit: Acute pain of left knee - XR KNEE 4 OR MORE VIEWS - KO ELAS W/CONDYLAR PADS&JOINTSK2 PATIENT INSTRUCTIONS Patient Instructions Get plenty of Rest Drink enough fluids Follow-up with PCP if your issue has not resolved. Go to the ER if symptoms are worsening. Use ice over the affected area every few hours as needed. Do not apply ice directly to the skin. Elevate limb whenever possible to help reduce swelling. You have been given a brace for your condition. Use it as directed. Your x-ray was interpreted in the office today and will be sent to a radiologist for final reading. If there are any discrepancies, you will be notified. This note was generated using [employer] voice recognition software. There may be spelling errors, changes in the words dictated and words inserted into the note which may have been misinterpreted by thedictation system. These words should not be used to change the intended meaning of the dictation. Content, context, words or meaning may not be entirely accurate and may require interpretation. Marcus Spivey PA-C documented in this encounter Nursing Notes * Francie Sheehan RT (R) - 02/22/2024 1:09 PM EDT The patient is being seen today for left knee pain. She said pain started about 3 days ago and painis getting worse. documented in this encounter Plan of Treatment Scheduled Orders Name Type Priority Associated Diagnoses Orde r Schedule KO ELAS W/CONDYLAR PADS&JOINTSK2 Procedures Routine Acute pain of left knee Ordered: 02/22/2024 Health Maintenance Due Date Last Done Comments DISCUSS TOBACCO CESSATION (REFER TO SMARTSET #0040) 1968 DTaP,Tdap,and Td Vaccines (1 - Tdap) 12/13/1987 Hepatitis B (1 of 3 - 19+ 3-dose series) 12/13/1987 Pneumococcal Vaccine: Pediatrics (0 to 5 Years) and At-Risk Patients (6 to 64 Years) (2 of 2 - PCV) 07/28/2010 07/28/2009 Cologuard 2013 Fecal Occult Blood Test 2013 Sigmoidoscopy 2013 Lung Cancer Screening 2018 Zoster Vaccines (1 of 2) 2018 Colonoscopy 07/28/2019 07/28/2009 Colorectal Cancer Screening 07/28/2019 Depression, Most Recent Score >= 10 (will fire each visit until score < 10) 08/31/2021 08/30/2021 *SPIROMETRY ONCE FOR ASTHMA-ADULT 08/18/2022 Mammogram 02/18/2023 02/18/2022 COVID-19 Vaccine ( season) 2023 03/19/2021, 02/14/2021 TSH 07/21/2023 07/21/2022, 02/24, 12/03/2021, Additional history exists Influenza Vaccine (FLU shot) (Season Ended) 2024 06/25/2013, 07/28/2009 Diabetes Screening 07/21/2025 07/21/2022, 0 05/26/2022, 04/17/2022, Additional history exists Lipid Panel 08/02/2026 08/02/2021 GARDASIL-HPV IMMUNIZATION SERIES Aged Out No longer eligible based on patient's age to complete this topic MENINGOCOCCAL (MENACTRA/MENVEO) Aged Out No longer eligible based on patient's age to complete this topic documented as of this encounter Medical Devices Not on filedocumented as of this encounter Procedures Procedure Name Priority Date/Time Associated Diagnosis Comments XR KNEE 4 OR MORE VIEWS STAT 02/22/2024 1:30 PM EDT Acute pain of left knee documented in this encounter Results * XR KNEE 4 OR MORE VIEWS (02/22/2024 1:30 PM EDT) Anatomical Region Laterality Modality Knee, Lower Extremity Digital Ra diography 02/22/2024 1:30 PM EDT Narrative 02/22/2024 1:57 PM EDT EXAM: XR KNEE 4V LT HISTORY: pain COMPARISON: None. FINDINGS: XR KNEE 4V LT There is no fracture or dislocation The joint spaces are maintained There is a small joint effusion. There is a moderate-sized enthesophyte arising from the anterior superior aspect of the patella IMPRESSION: 1. Small joint effusion. Electronically Signed by Martínez Hunt MD on January at 13:57. Workstation:[employer] Procedure Note Martínez Hunt MD - 02/22/2024 EXAM: XR KNEE 4V LT HISTORY: pain COMPARISON: None. FINDINGS: XR KNEE 4V LT There is no fracture or dislocation The joint spaces are maintained There is a small joint effusion. There is a moderate-sized enthesophyte arising from the anterior superioraspect of the patella IMPRESSION: 1. Small joint effusion. Electronically Signed by Martínez Hunt MD on January at 13:57.Workstation:[employer] Marcus Spivey PA-C [facility]) documented in this encounter Visit Diagnoses Diagnosis Acute pain of left knee- Primary documented in this encounter Advance Directives Documents on File Type Date Recorded Patient Test Lead Expl anation Advance Directives and Living Will 11/06/2006 Power of Employee Relation Manager 11/06/2006 * Full Code (Latest Code Status on File) Date Activated Date Inactivated Comments 10/15/2013 12:13 PM 10/22/2013 5:39 PM This order reflects the patients wishes and were consensually agreed upon. * Full Code Date Activated Date Inactivated Comments 10/12/2013 8:52 PM 10/15/2013 11:52 AM This order reflects the patients wishes and were consensually agreed upon. Question Answer Comments Discussion of Advance Directives occurred with: Not Discussed Does the patient have a Living Will? No Does the patient have Health Care Power of Attor dang? No * Full Code Date Activated Date Inactivated Comments 04/28/2013 8:26 PM 05/01/2013 9:16 PM This order ref lects the patients wishes and were consensually agreed upon. * Full Code Date Activated Date Inactivated Comments 04/28/2013 8:18 PM 04/28/2013 8:26 PM This order ref lects the patients wishes and were consensually agreed upon. * Full Code Date Activated Date Inactivated Comments 07/27/2009 7:51 PM 07/28/2009 10:53 PM This order reflects the patients wishes and were consensually agreed upon. Question Answer Comments Discussion of Advance Directives occurred with: Patient Does the patient have a Living Will? No Does the patient have Health Care Power of Attor dang? No Care Teams Amortization Schedule Clerk Relationship Specialty Start Date End Date Jordan Castorena MD [address] [place] [address] [place] [id number] PCP - General Internal Medicine 04/29/13 documented as of this encounter
[2024-04-13] MEDS ORDERED: LEVOTHYROXINE SODIUM 175 MCG TABLET PO SCH (06:30)
[2024-04-13 07:30] LABS: Hematocrit (blood only) 38.4 % (37.0-47.0); Hemoglobin 13.5 g/dl (12.0-16.0); Mean Corpuscular Hemoglobin 32.8 pg (25.0-34.0); Mean Corpuscular Hgb Conc 35.2 g/dL (32.0-36.0); Mean Corpuscular Volume 93.4 fL (80.0-100.0); Mean Platelet Volume 9.7 fL (9.4-12.4); Platelet Count 207 K/uL (130-400); RDW Coefficient of Variation 11.6 % (11.5-14.5); RDW Standard Deviation 39.5 fL (36.4-46.3); Red Blood Count 4.11 M/uL (4.20-5.40); White Blood Count 8.07 K/ul (4.8-10.8)
[2024-04-13] MEDS: METOPROLOL TARTRATE 25 MG TAB PO SCH (07:41)
[2024-04-13] MEDS: ATORVASTATIN 40 MG TAB PO SCH (07:41)
[2024-04-13] MEDS: ASPIRIN 81 MG ECTAB PO SCH (07:41)
[2024-04-13] MEDS: FLUTICASONE/VILANTEROL 200/25MCG 14 PUFFS/INHALER INH SCH (07:42)
[2024-04-13 07:58] LABS: BUN Creatinine Ratio 19.1 (10-20); Calcium 8.6 mg/dl (8.6-10.3); Chol HDL Ratio 5.9 (0-5); Creatinine Clr Calc Pharmacy 63.3 ml/min; Est GFR (African American) 79.2 ml/min; Est GFR (Non-African American) 68.3 ml/min; Potassium 3.4 mmol/L (3.5-5.1)
[2024-04-13 08:30] LABS: Troponin I High Sensitivity 17.1 pg/ml (0-14)
--- NOTE | 2024-04-13 08:40 | Cardiology Consultation ---
Date of Consultation April 13, 2024 Assessment & Plan (1) Chest pain: (2) Abnormal TSH: (3) Tobacco abuse: (4) Hypothyroidism: Plan Impression/Plan: 1.Chest Pain 2.Elevated Troponin 3.Prolonged QTC 4.Hypokalemia K 3.4 5.Hypertension-On Metoprolol Tartrate 25 mg BID 6.Tobacco Use- Nicotine Patch in Place. 04/13/24: -Currently chest pain free. She has a significant amount of stress in her life. -She does have a significant family history of CAD, HTN, HLD, and is a 1 PPD smoker. -Plan to discuss possible ischemia evaluation with patient later today. -Avoid QTC prolonging medications. Case discussed with Dr. Azul I spent a total of 50 minutes on the date of service in preparation, delivery, and documentation of the care provided to this patient, excluding any time spent in the performance of separately billed services. MAGDALENO Breen Department of Cardiology, [facility] This chart was completed in part utilizing Speech Voice Recognition Software. Grammatical errors, random word insertions, pronoun errors, and incomplete sentences are an occasional consequence of this system due to software limitations, ambient noise, and hardware issues. Any formal questions or concerns about the content, text, or information contained within the body of this dictation should be directly addressed to the provider for clarification. Supervising Physician Co-Signing Physician Notes Attending attestation: Case reviewed with the advanced practitioner. I have personally performed a history and physical examination on the patient. I have reviewed the advanced practitioner's documentation on the date of service referenced in note, and I agree with, and take responsibility for the plan of care. Subjective: patient denies chest discomfort during my assessment. Exam: Cardiovascular: Regular rhythm, no murmurs, no edema Gait unstable per my personal inspection watching her ambulate in her room Data: Serial EKG tracings this admission thus far reveals sinus rhythm without significant repolarization abnormalities, QT prolongation however noted, QT interval on 04/13/2024 at 6:11 AM was 509 ms Impression/ Plan: Chest pain Depression, complicated bereavement -High since he troponin mildly elevated. -Resting echocardiogram without any wall motion abnormalities. -Recommend proceeding with a stress test for further risk stratification. The patient is unable to ambulate sufficiently to walk on the treadmill. I feel a Lexiscan nuclear stress test would be the best option and hopefully that can be performed early next week. Given the mild elevation in the troponin I would recommend that this is performed as an inpatient. I spent a total of 20 minutes coordinating, documenting, and providing care for this patient excluding time spent in the performance of separately billed services or time spent by another provider. Justino Azul, History of Present Illness Reason for Consultation: Chest Pain Requesting Physician: Giovanny Irwin MD Attending Physician: Dr. Azul History of Present Illness PMH: 1.Hypertension 2.MS 3.Hypothyroidism 4.Tobacco Use 5.Chronic Pain on Opioids 6.Anxiety/Depression 7. Asthma 8.Hyperlipidemia 9.Interstitial Cystitis Patient is a 53 yo F that presented to [facility] on 04/12/24 for evaluation of chest pain. Patient states her son about a year ago. Has been struggling with his . She sees a counselor in the [place] area. Patient stopped all of her medications about 8 days ago. She wanted to be admitted and evaluated to see what medication she should be on. States she had been on 15 different medications which she felt was ridiculous for a 53 year old woman. She didn't want to go to the ED so her counselor recommend admitting herself to the [facility] eval. At that time her BP was noted to be elevated. She had left sided discomfort. Feels like there is a "blanket around her heart." Chest discomfort did radiate to the left jaw. Feels short of breath with most activities. States she did not leave her house for a month other than to go to an appointment. Psych is consulted. It should be noted that she has a history of Seroquel over dose in the past. Sister had an ID age 55. Other sister had a stroke at 53. Patient smokes 1 PPD. Allergies Allergy/AdvReac Type Severity Reaction Status Date / Time sumatriptan [From Imitrex] Allergy Chest Pain Verified 04/12/24 15:23 morphine AdvReac agitation Verified 04/12/24 16:40 sulfamethoxazole AdvReac nausea, Verified 04/12/24 15:23 [From vomiting Sulfamethoxazole-Trimethoprim] trimethoprim AdvReac nausea, Verified 04/12/24 15:23 [From vomiting Sulfamethoxazole-Trimethoprim] Home Medications Medication Instructions Recorded Confirmed Type albuterol sulfate 90 mcg/actuation 2 puff inhalation Q4H 04/12/24 04/12/24 History aerosol inhaler aspirin 81 mg capsule 81 mg PO DAILY 04/12/24 04/12/24 History atorvastatin 40 mg tablet 40 mg PO DAILY 04/12/24 04/12/24 History bupropion HCl 150 mg tablet,12 hr 150 mg PO BID 04/12/24 04/12/24 History sustained-release cholecalciferol (vitamin D3) 1,250 50,000 unit PO WK 04/12/24 04/12/24 History mcg (50,000 unit) capsule citalopram 40 mg tablet 40 mg PO DAILY 04/12/24 04/12/24 History estradiol 2 mg tablet 2 mg PO DAILY 04/12/24 04/12/24 History fluticasone 250 mcg-salmeterol 50 1 inh inhalation DAILY 04/12/24 04/12/24 History mcg/dose blistr powdr for inhalation ipratropium 20 mcg-albuterol 100 2 puff inhalation BID 04/12/24 04/12/24 History mcg/actuation mist for inhalation (Combivent Respimat) levothyroxine 175 mcg tablet 175 mcg PO DAILY 04/12/24 04/12/24 History lorazepam 0.5 mg tablet 0.5 mg PO TID 04/12/24 04/12/24 History metoprolol tartrate 50 mg tablet 50 mg PO BID 04/12/24 04/12/24 History oxycodone 10 mg tablet 20 mg PO QID 04/12/24 04/12/24 History pentosan polysulfate sodium 100 mg 100 mg PO BID 04/12/24 04/12/24 History capsule (Elmiron) Patient History Medical History (Updated 04/13/24 @ 13:10 by Joanna Jacome MD) History of electroconvulsive therapy 10/18/2013- Dr Jason Crespo at [facility] [place] 10/21/2013 - Dr Zachariah Haddad at [facility] Surgical History (Updated 04/12/24 @ 15:25 by Tana Johnson PA-C) History of section History of hysterectomy History of appendectomy Family History (Updated 04/12/24 @ 15:26 by Tana Johnson PA-C) Father Heart disease ID Other Depression Diabetes Hypertension Social History (Updated 04/12/24 @ 21:03 by Tana Johnson PA-C) Smoking Status: Current every day smoker Tobacco Type: Cigarettes packs per day: 1; Second Hand Exposure: No; Do You Dip or Chew Tobacco: No; Tobacco Cessation Education Requested by Patient: No Hx Alcohol Use: No Hx Substance Use: No Beliefs That Will Affect Care: None Current Living Situation: Alone Other Information That Helps Us Care for You: No Feels Safe at Home: Yes Safety Concerns: Feels Safe At This Time Assistive Devices: None Review of Systems Review of Systems: All systems reviewed & are unremarkable except as noted in HPI & below Physical Exam Constitutional: WD/WN, vitals as above Respiratory: normal respiratory effort, lungs clear to auscultation normal respiratory effort Cardiovascular: RRR, no murmur, no edema Rate/Rhythm: regular rate and regular rhythm Heart Sounds: normal S1 and normal S2 Neurologic: PERRL, EOMI, accommodation nl, no face palsy, no dysarthria Results & Data Vital Signs (Past 12 Hours) Vital Signs Temp Pulse Pulse Resp BP Pulse Ox O2 Del Method 04/13/24 08:12 36.3 C L 91 H 18 117/83 95 Room Air 04/13/24 02:57 36.7 C 84 17 107/74 96 Room Air 04/12/24 23:11 36.8 C 80 17 113/76 97 Room Air 04/12/24 22:00 88 Laboratory Results Cardiac Enzymes 04/12/24 04/12/24 04/12/24 Range/Units 12:26 16:49 22:39 AST 14 (13-39) U/L Troponin I High Sens 42.1 H 35.2 H 28.3 H (0-14) pg/ml 04/13/24 Range/Units 06:59 AST (13-39) U/L Troponin I High Sens 17.1 H D (0-14) pg/ml Coagulation 04/12/24 Range/Units 12:26 PT 13.1 H (9.0-12.0) Seconds APTT 26 (21-31) Seconds Lipids 04/13/24 Range/Units 06:59 Triglycerides 283 H (0-150) mg/dl Cholesterol 147 (0-200) mg/dl HDL Cholesterol 25 mg/dl Cholesterol/HDL Ratio 5.9 H (0-5) LDL: 65 mg/dl CBC 04/12/24 04/13/24 Range/Units 12:26 06:59 WBC 10.25 8.07 (4.8-10.8) K/ul RBC 4.75 4.11 L (4.20-5.40) M/uL Hgb 15.2 13.5 (12.0-16.0) g/dl Hct 43.6 38.4 (37.0-47.0) % Plt Count 251 207 (130-400) K/uL Neut # (Auto) 4.71 (1.40-6.50) K/uL Lymph # (Auto) 4.19 H (1.20-3.40) K/uL [place] # (Auto) 1.03 H (0.11-0.59) K/uL Eos # (Auto) 0.13 (0.00-0.50) K/uL Baso # (Auto) 0.10 (0.00-0.20) K/uL Comprehensive Metabolic Panel 04/12/24 04/13/24 Range/Units 12:26 06:59 Sodium 141 142 (136-145) mmol/L Potassium 3.5 3.4 L (3.5-5.1) mmol/L Chloride 107 110 H (98-107) mmol/L Carbon Dioxide 23 24 (21-32) mmol/L BUN 18 18 (6-23) mg/dl Creatinine 1.09 0.94 (0.6-1.2) mg/dl Glucose 118 H 100 H (70-99(Fasting)) mg/dl Calcium 9.6 8.6 (8.6-10.3) mg/dl AST 14 (13-39) U/L ALT 12 (7-52) U/L Alkaline Phosphatase 83 (34-104) U/L Total Protein 8.0 (6.0-8.3) gm/dl Albumin 4.6 (3.4-5.0) gm/dl Intake and Output 04/12/24 04/13/24 04/13/24 22:59 06:59 14:59 Other: Other Intake Source NPO # Unmeasured Voids 2 2 Weight 68.3 kg 68.4 kg Weight Measurement Method Stated by Patient Built in [facility] Diagnostic Findings EKG 04/13/2024 NSR 85 bpm QTC 509 EKG 04/12/2024 ST 107 bpm Non-specifc ST abnormality (1) Chest pain Chest pain type: unspecified Qualified Code(s): R07.9 - Chest pain, unspecified
[2024-04-13] MEDS: POTASSIUM CHLORIDE CRTAB 20 MEQ TABCR PO ONE (09:24)
--- NOTE | 2024-04-13 09:42 | Emergency Department Note ---
Impression & Plan Chest pain ADMIT ED Provider Note HPI: History obtained from patient. The patient is a 53-year-old female with history of hypertension, hyperlipidemia, hypothyroidism, anxiety and depression, who presents to the emergency department today with a chief complaint of chest pain. Patient was at the [facility] as a patient under 201, she states he had chest pain last night into this morning. Patient therefore came to the ED to be assessed. On my initial assessment the patient is a somewhat difficult historian, she is anxious and intermittently tearful. She states that she has had suicidal ideations recently secondary to feeling depressed over the loss of a loved one. She is also been having issues arguing with her fianc which have caused her increased stress and at times chest discomfort. Patient states her chest pain was worse this morning although during my interview she states it is improved from previous. On arrival here to the ED otherwise the patient is alert and oriented, she is cooperative with exam. ROS: - Per HPI Differential Diagnosis: Acute coronary syndrome, aortic dissection, pneumothorax, esophagitis, anxiety reaction, pulmonary embolism, amongst other potential pathologies. *Outpatient medications and allergy history reviewed. PE: General: Alert HEENT: Normocephalic, trachea midline Eyes: Extraocular eye movement is intact, no scleral erythema Pulmonary: Clear to auscultation bilaterally, no wheezing Cardio: Regular rate and rhythm GI: Abdomen is soft to palpation : No suprapubic tenderness MSK: No evidence of trauma or malformation of the extremities, no edema Skin: No evidence of rash Neuro: Alert, no focal deficits Psychiatric: Anxious appearing and intermittently tearful, cooperative INDEPENDENT INTERPRETATIONS: nuclear monitoring technician: (As interpreted by myself): - An order was placed for continuous cardiac monitoring - Patient was noted to be in sinus rhythm with a rate of 90 EKG: (As interpreted by myself): Rate: 107 Rhythm: Sinus tachycardia Intervals: QTc 509 ms, otherwise within normal limits ST changes: No ST elevation Time: 1145 Chest x-ray: (As interpreted by myself): No acute disease Interventions provided in ED: -IV Ativan Medical Decision Making: IV was established and lab work obtained, patient was placed on cardiac tech. Lab work shows no critical findings, high-sensitivity troponin level is noted to be mildly elevated at 42, EKG per my interpretation does not show any evidence of ST elevation. Patient was given IV Ativan here in the ED with good improvement in her anxiety, on my reassessment she is resting comfortably and she is chest pain-free. She did receive aspirin prior to arrival via EMS. Given the patient's symptoms of chest discomfort recently with an elevated troponin, I did discuss her presentation with the [facility]ist service, patient was placed for admission in stable condition for further workup. Patient is not short of breath, she is saturating well on room air, low suspicion for PE at this time. Consultants/Discussions held with other healthcare providers: -Hospitalist, Dr. Umana Disposition discussion held by myself with: -Patient Diagnosis: 1. Chest pain, acute 2. Elevated high-sensitivity troponin level, acute 3. Anxiety reaction, acute Disposition: Admission Chucky Richardson DO Emergency Medicine Past Med/Surg History Problem List (Updated 04/13/24 @ 09:42 by Chucky Richardson DO) Abnormal TSH Chest pain (Acute) Interstitial cystitis Asthma Tobacco abuse Chronic pain Hypothyroidism Multiple sclerosis GERD (gastroesophageal reflux disease) HLD (hyperlipidemia) HTN (hypertension) Suicidal ideations Anxiety and depression Medical History (Updated 04/13/24 @ 09:42 by Chucky Richardson DO) [place] of [place]convulsive [place] 10[place]18[place]2013[place] [facility] [place]/21/2013 - [place] Zachariah [place]add[place] [facility] [place] Surgical History (Updated 04/12/24 @ 15:25 by Tana Johnson PA-C) History of section History of hysterectomy History of appendectomy Family History (Updated 04/12/24 @ 15:26 by Tana Johnson PA-C) Father Heart disease [place] Other Depression Diabetes Hypertension Social History (Updated 04/12/24 @ 21:03 by Tana Johnson PA-C) Smoking Status: Current every day smoker Tobacco Type: Cigarettes packs per day: 1; Second Hand Exposure: No; Do You Dip or Chew Tobacco: No; Tobacco Cessation Education Requested by Patient: No Hx Alcohol Use: No Hx Substance Use: No Beliefs That Will Affect Care: None Current Living Situation: Alone Other Information That Helps Us Care for You: No Feels Safe at Home: Yes Safety Concerns: Feels Safe At This Time Assistive Devices: None Allergies Allergies Allergy/AdvReac Type Severity Reaction Status Date / Time sumatriptan [From Imitrex] Allergy Chest Pain Verified 04/12/24 15:23 morphine AdvReac agitation Verified 04/12/24 16:40 sulfamethoxazole AdvReac nausea, Verified 04/12/24 15:23 [From vomiting Sulfamethoxazole-Trimethoprim] trimethoprim AdvReac nausea, Verified 04/12/24 15:23 [From vomiting Sulfamethoxazole-Trimethoprim] Home Meds Home Medications Medication Instructions Recorded Confirmed albuterol sulfate 90 mcg/actuation 2 puff inhalation Q4H 04/12/24 04/12/24 aerosol inhaler aspirin 81 mg capsule 81 mg PO DAILY 04/12/24 04/12/24 atorvastatin 40 mg tablet 40 mg PO DAILY 04/12/24 04/12/24 bupropion HCl 150 mg tablet,12 hr 150 mg PO BID 04/12/24 04/12/24 sustained-release cholecalciferol (vitamin D3) 1,250 50,000 unit PO WK 04/12/24 04/12/24 mcg (50,000 unit) capsule citalopram 40 mg tablet 40 mg PO DAILY 04/12/24 04/12/24 estradiol 2 mg tablet 2 mg PO DAILY 04/12/24 04/12/24 fluticasone 250 mcg-salmeterol 50 1 inh inhalation DAILY 04/12/24 04/12/24 mcg/dose blistr powdr for inhalation ipratropium 20 mcg-albuterol 100 2 puff inhalation BID 04/12/24 04/12/24 mcg/actuation mist for inhalation (Combivent Respimat) levothyroxine 175 mcg tablet 175 mcg PO DAILY 04/12/24 04/12/24 lorazepam 0.5 mg tablet 0.5 mg PO TID 04/12/24 04/12/24 metoprolol tartrate 50 mg tablet 50 mg PO BID 04/12/24 04/12/24 oxycodone 10 mg tablet 20 mg PO QID 04/12/24 04/12/24 pentosan polysulfate sodium 100 mg 100 mg PO BID 04/12/24 04/12/24 capsule (Elmiron) Results & Data (ED) Vital Signs Vital Signs - 24 hr 04/12/24 15:39 Pulse Rate 102 H Laboratory Data 04/13/24 06:59 04/13/24 06:59 Lab Results 04/12/24 Range/Units 12:26 WBC 10.25 (4.8-10.8) K/ul RBC 4.75 (4.20-5.40) M/uL Hgb 15.2 (12.0-16.0) g/dl Hct 43.6 (37.0-47.0) % MCV 91.8 (80.0-100.0) fL MCH 32.0 (25.0-34.0) pg MCHC 34.9 (32.0-36.0) g/dL RDW Std Deviation 38.8 (36.4-46.3) fL RDW Coeff of Jaky 11.5 (11.5-14.5) % Plt Count 251 (130-400) K/uL MPV 10.0 (9.4-12.4) fL Immature Gran % (Auto) 0.9 % Neut % (Auto) 45.9 % Lymph % (Auto) 40.9 % [place] % (Auto) 10.0 % Eos % (Auto) 1.3 % Baso % (Auto) 1.0 % Neut # (Auto) 4.71 (1.40-6.50) K/uL Lymph # (Auto) 4.19 H (1.20-3.40) K/uL [place] # (Auto) 1.03 H (0.11-0.59) K/uL Eos # (Auto) 0.13 (0.00-0.50) K/uL Baso # (Auto) 0.10 (0.00-0.20) K/uL Immature Gran # (Auto) 0.09 (0.01-0.20) K/uL PT 13.1 H (9.0-12.0) Seconds INR 1.2 H (0.9-1.1) APTT 26 (21-31) Seconds PTT Ratio 1.0 Sodium 141 (136-145) mmol/L Potassium 3.5 (3.5-5.1) mmol/L Chloride 107 (98-107) mmol/L Carbon Dioxide 23 (21-32) mmol/L Anion Gap 11 (3-11) BUN 18 (6-23) mg/dl Creatinine 1.09 (0.6-1.2) mg/dl Est Cr Clr Drug Dosing 54.6 ml/min Est GFR ( Amer) 66.2 ml/min Est GFR (Non-Af Amer) 57.1 ml/min BUN/Creatinine Ratio 16.5 (10-20) Glucose 118 H (70-99(Fasting)) mg/dl Calcium 9.6 (8.6-10.3) mg/dl Total Bilirubin 0.9 (0.2-1.0) mg/dl AST 14 (13-39) U/L ALT 12 (7-52) U/L Alkaline Phosphatase 83 (34-104) U/L Troponin I High Sens 42.1 H (0-14) pg/ml Total Protein 8.0 (6.0-8.3) gm/dl Albumin 4.6 (3.4-5.0) gm/dl Globulin 3.4 (2.5-4.0) gm/dl Albumin/Globulin Ratio 1.4 (0.9-2) Administered Medications Acetaminophen (Acetaminophen 325 Mg Tab) 650 mg PO Q4H PRN PRN Reason: Pain or Fever Stop: 05/12/24 18:42 Last Admin: 04/12/24 21:20 Dose: 650 mg Documented By: SARA Aspirin (Aspirin 81 Mg Ectab) 81 mg PO QAM [facility] Stop: 05/13/24 08:59 Last Admin: 04/13/24 07:41 Dose: 81 mg Documented By: DANNY Atorvastatin Calcium (Atorvastatin 40 Mg Tab) 40 mg PO DAILY [facility] Stop: 05/13/24 08:59 Last Admin: 04/13/24 07:41 Dose: 40 mg Documented By: DANNY Enoxaparin Sodium (Enoxaparin Inj 40 Mg/0.4 Ml Syr) 40 mg SQ Q24H [facility] Stop: 05/12/24 18:59 Last Admin: 04/12/24 20:03 Dose: 40 mg Documented By: SARA Fluticasone/Vilanterol (Fluticasone/Vilanterol 200/25mcg 14 Puffs/Inhaler) 1 puffs INH DAILY [facility] Stop: 05/13/24 08:59 Last Admin: 04/13/24 07:42 Dose: 1 puffs Documented By: DANNY Lorazepam (Lorazepam 0.5 Mg Tab) 0.5 mg PO TID PRN PRN Reason: Anxiety Stop: 05/12/24 18:42 Last Admin: 04/13/24 07:41 Dose: 0.5 mg Documented By: Admin: 04/12/24 23:08 Dose: 0.5 mg Documented By: Admin: 04/12/24 20:06 Dose: 0.5 mg Documented By: SARA Metoprolol Tartrate (Metoprolol Tartrate 25 Mg Tab) 25 mg PO BID [facility] Stop: 05/13/24 08:59 Last Admin: 04/13/24 07:41 Dose: 25 mg Documented By: DANNY Miscellaneous (Remove Nicoderm Patch) 1 each N/A DAILY@[id number] [facility] Stop: 05/13/24 08:58 Last Admin: 04/13/24 07:41 Dose: 1 each Documented By: DANNY Nicotine (Nicotine 21 Mg/24 Hr Tdsy) 1 patch TD QAM [facility] Stop: 05/12/24 16:29 Last Admin: 04/13/24 09:24 Dose: 1 patch Documented By: Admin: 04/12/24 17:00 Dose: 1 patch Documented By: OTF Pentosan Polysulfate Sodium (Pentosan Polysulfate Sodium 100 Mg Cap) 100 mg PO BID [facility] Stop: 05/12/24 20:59 Last Admin: 04/13/24 07:42 Dose: 100 mg Documented By: Admin: 04/12/24 20:03 Dose: 100 mg Documented By: SARA Trazodone HCl (Trazodone Hcl 50 Mg Tab) 50 mg PO HS [facility] Stop: 05/12/24 20:59 Last Admin: 04/12/24 20:04 Dose: Not Given Documented By: SARA Discontinued Medications Aspirin (Aspirin Chew 324 Mg) Confirm Administered Dose 324 mg .ROUTE .STK-MED [facility] Stop: 04/12/24 11:47 Last Admin: 04/12/24 16:22 Dose: Not Given Documented By: OTF Lorazepam (Lorazepam 1 Mg/1 Ml Syr Ed Inj Use) Confirm Administered Dose 1 mg .ROUTE .STK-MED ONE Stop: 04/12/24 12:53 Last Admin: 04/12/24 16:22 Dose: Not Given Documented By: OTF Metoprolol Tartrate (Metoprolol Tartrate 25 Mg Tab) 25 mg PO ONE ONE Stop: 04/12/24 20:01 Last Admin: 04/12/24 20:29 Dose: 25 mg Documented By: SARA Potassium Chloride (Potassium Chloride Crtab 20 Meq Tabcr) 40 meq PO NOW ONE Stop: 04/13/24 08:41 Last Admin: 04/13/24 09:24 Dose: 40 meq Documented By: DANNY Discharge Plan Visit Data Chief Complaint: Chest Pain Stated Complaint: CHEST PAIN ED Provider: Chucky Richardson Discharge Problem: Chest pain Patient Disposition: Admitted As Inpatient Discharge Instructions Interventions: ED Discharge Assessment Last Done: 04/12/24 18:17 Discharge Problem: Chest pain Qualifiers: Chest pain type: unspecified Qualified Code(s): R07.9 - Chest pain, unspecified
--- NOTE | 2024-04-13 12:21 | Psychiatric Consultation ---
Date of Consultation April 13, 2024 Impression / Recommendations Impression Diagnostically consistent with unspecified depression likely combination of persistent depressive disorder and complicated bereavement. Acute risk of self-harm is low given denial of active SI, reasons for living, future-oriented, reports some improvement in mood. Chronic risk is moderate given history of past attempts. Would avoid use of any scheduled psychiatric medications given her QTc is >500ms. Ok to use ativan prn as she has been on this for many years, it tends to be much lower risk in terms of QTc prolongation, she finds it beneficial, no concerns for misuse and has taken it safely alongside opioids for many years. She is not interested in inpatient psychiatric treatment and does not meet involuntary criteria. Motivated for additional outpatient mental health resources which psych liason will investigate and provide her information about. Reviewed safety planning and crisis resources. Overall, I spent a total of 60 minutes with this case including review of chart records, review of labwork, review of EKG QTc, direct evaluation of the patient at bedside, counseling the patient, discussion of the patient with the hospitalist provider, discussion with the psychiatric liason during clinical rounds and documentation in the electronic health record. (1) Depression, unspecified: (2) Complicated bereavement: Plan -Safe for discharge once medically stable from psychiatric standpoint -Would discontinue trazodone given prolonged QTc Psych History Identifying Data 53 yo woman with a history of HTN, depression, anxiety, asthma, MS, hypothyroidism, chronic pain on chronic opioids, interstitial cystitis, tobacco use admitted for chest pain from the [facility]. Psychiatry consulted for risk assessment. Chief Complaint "I feel better than I have in awhile". History of Present Illness Genie reports a long history of depression which worsened about one year ago after her son's . Two days ago she sought treatment at the [facility] via their walk-in admission process for ongoing depression and after discussing with her outpatient therapist that it might be beneficial to re-examine what if any psychiatric medications are necessary and get therapy to process her son's . She had been having some shortness of breath which worsened as she was admitted at the [facility]. At first she thought it was anxiety but it continued to worsen and she reports providers at the [facility] noted her vital signs were abnormal which concerned her. Today she is feeling better and is grateful to have been admitted for medical treatment. Reports stopping her medications about a week ago due to concerns for polypharmacy. Denies she stopped these due to hopelessness nor wish to , rather has been frustrated that she is on so many medications and "no one can sit down with me and explain which ones I need to be on or if any can be stopped". She recognizes now that she likely needs to remain on her cardiac medications. However, mentally she actually feels better since stopping her psychiatric medications which she notes has surprised her but she is also pleased about because "I feel more mentally clear". She is open to trying psychiatric medications again in the future but would like to try therapy first. Interested in a more intensive therapy type program and willing to travel to a larger city if needed to be able to do an IOP. Denies SI and reports she was not having any type of active SI on admission to the [facility] either. At times does have passive SI. No access to guns at home. History of two prior suicide attempts >10 years ago. Feels well supported by her partner. Has an outpatient therapist. Interested in outpatient psychiatry to consider option for scheduled psychiatric medication in the future for depression if therapy does not provide enough benefit. Does find prn ativan helpful and would like to continue this. She denies any substance use except tobacco. Allergies Allergy/AdvReac Type Severity Reaction Status Date / Time sumatriptan [From Imitrex] Allergy Chest Pain Verified 04/12/24 15:23 morphine AdvReac agitation Verified 04/12/24 16:40 sulfamethoxazole AdvReac nausea, Verified 04/12/24 15:23 [From vomiting Sulfamethoxazole-Trimethoprim] trimethoprim AdvReac nausea, Verified 04/12/24 15:23 [From vomiting Sulfamethoxazole-Trimethoprim] Home Medications Medication Instructions Recorded Confirmed Type albuterol sulfate 90 mcg/actuation 2 puff inhalation Q4H 04/12/24 04/12/24 History aerosol inhaler aspirin 81 mg capsule 81 mg PO DAILY 04/12/24 04/12/24 History atorvastatin 40 mg tablet 40 mg PO DAILY 04/12/24 04/12/24 History bupropion HCl 150 mg tablet,12 hr 150 mg PO BID 04/12/24 04/12/24 History sustained-release cholecalciferol (vitamin D3) 1,250 50,000 unit PO WK 04/12/24 04/12/24 History mcg (50,000 unit) capsule citalopram 40 mg tablet 40 mg PO DAILY 04/12/24 04/12/24 History estradiol 2 mg tablet 2 mg PO DAILY 04/12/24 04/12/24 History fluticasone 250 mcg-salmeterol 50 1 inh inhalation DAILY 04/12/24 04/12/24 History mcg/dose blistr powdr for inhalation ipratropium 20 mcg-albuterol 100 2 puff inhalation BID 04/12/24 04/12/24 History mcg/actuation mist for inhalation (Combivent Respimat) levothyroxine 175 mcg tablet 175 mcg PO DAILY 04/12/24 04/12/24 History lorazepam 0.5 mg tablet 0.5 mg PO TID 04/12/24 04/12/24 History metoprolol tartrate 50 mg tablet 50 mg PO BID 04/12/24 04/12/24 History oxycodone 10 mg tablet 20 mg PO QID 04/12/24 04/12/24 History pentosan polysulfate sodium 100 mg 100 mg PO BID 04/12/24 04/12/24 History capsule (Elmiron) Patient History Medical History (Updated 04/13/24 @ 13:10 by Joanna Jacome MD) History of electroconvulsive therapy 10/18/2013- Dr Jason Crespo at [facility] 10/21/2013 - Dr Zachariah Haddad at [facility] Surgical History (Updated 04/12/24 @ 15:25 by Tana Johnson PA-C) History of section History of hysterectomy History of appendectomy Family History (Updated 04/12/24 @ 15:26 by Tana Johnson PA-C) Father Heart disease PA Other Depression Diabetes Hypertension Social History (Updated 04/12/24 @ 21:03 by Tana Johnson PA-C) Smoking Status: Current every day smoker Tobacco Type: Cigarettes packs per day: 1; Second Hand Exposure: No; Do You Dip or Chew Tobacco: No; Tobacco Cessation Education Requested by Patient: No Hx Alcohol Use: No Hx Substance Use: No Beliefs That Will Affect Care: None Current Living Situation: Alone Other Information That Helps Us Care for You: No Feels Safe at Home: Yes Safety Concerns: Feels Safe At This Time Assistive Devices: None Physical Exam Psychiatric: Orientation: alert and oriented x 3 Apperance: appropriately dressed and appropriately groomed Eye Contact: good eye contact Motor Behavior: no abnormal motor movements Speech: normal rate/rhythm/volume of speech Affect: euthymic affect Mood: + depressed mood and + anxious mood Thought Process: goal directed thought process Thought Content: reality based without delusions Suicidal Thoughts: denies suicidal plan and denies suicidal intent; + reports suicidal thoughts (intermittent passive thoughts, denies any active SI ) Homicidal Thoughts: denies homicidal thoughts Hallucinations: no auditory hallucinations and no visual hallucinations Cognition: recent memory grossly intact, remote memory grossly intact, attention grossly intact and language grossly intact Estimated Intelligence: consistent with education level Insight: + fair insight Judgment: + fair judgement Vital Signs (Past 24 Hours): Last Vital Signs Temp 36.5 C 04/13/24 12:13 Pulse 90 04/13/24 12:13 Resp 20 04/13/24 12:13 BP 138/76 04/13/24 12:13 Pulse Ox 96 04/13/24 12:13 O2 Del Method Room Air 04/13/24 12:13 Results & Data (PSY) Medications Administered Acetaminophen (Acetaminophen 325 Mg Tab) 650 mg PO Q4H PRN PRN Reason: Pain or Fever Stop: 05/12/24 18:42 Last Admin: 04/12/24 21:20 Dose: 650 mg Documented By: SARA Aspirin (Aspirin 81 Mg Ectab) 81 mg PO QAM [facility] Stop: 05/13/24 08:59 Last Admin: 04/13/24 07:41 Dose: 81 mg Documented By: DANNY Atorvastatin Calcium (Atorvastatin 40 Mg Tab) 40 mg PO DAILY [facility] Stop: 05/13/24 08:59 Last Admin: 04/13/24 07:41 Dose: 40 mg Documented By: DANNY Enoxaparin Sodium (Enoxaparin Inj 40 Mg/0.4 Ml Syr) 40 mg SQ Q24H [facility] Stop: 05/12/24 18:59 Last Admin: 04/12/24 20:03 Dose: 40 mg Documented By: SARA Fluticasone/Vilanterol (Fluticasone/Vilanterol 200/25mcg 14 Puffs/Inhaler) 1 puffs INH DAILY [facility] Stop: 05/13/24 08:59 Last Admin: 04/13/24 07:42 Dose: 1 puffs Documented By: DANNY Lorazepam (Lorazepam 0.5 Mg Tab) 0.5 mg PO TID PRN PRN Reason: Anxiety Stop: 05/12/24 18:42 Last Admin: 04/13/24 07:41 Dose: 0.5 mg Documented By: Admin: 04/12/24 23:08 Dose: 0.5 mg Documented By: Admin: 04/12/24 20:06 Dose: 0.5 mg Documented By: SARA Metoprolol Tartrate (Metoprolol Tartrate 25 Mg Tab) 25 mg PO BID [facility] Stop: 05/13/24 08:59 Last Admin: 04/13/24 07:41 Dose: 25 mg Documented By: DANNY Miscellaneous (Remove Nicoderm Patch) 1 each N/A DAILY@0859 [facility] Stop: 05/13/24 08:58 Last Admin: 04/13/24 07:41 Dose: 1 each Documented By: DANNY Nicotine (Nicotine 21 Mg/24 Hr Tdsy) 1 patch TD QAM [facility] Stop: 05/12/24 16:29 Last Admin: 04/13/24 09:24 Dose: 1 patch Documented By: Admin: 04/12/24 17:00 Dose: 1 patch Documented By: OTF Pentosan Polysulfate Sodium (Pentosan Polysulfate Sodium 100 Mg Cap) 100 mg PO BID [facility] Stop: 05/12/24 20:59 Last Admin: 04/13/24 07:42 Dose: 100 mg Documented By: Admin: 04/12/24 20:03 Dose: 100 mg Documented By: SARA Trazodone HCl (Trazodone Hcl 50 Mg Tab) 50 mg PO HS [facility] Stop: 05/12/24 20:59 Last Admin: 04/12/24 20:04 Dose: Not Given Documented By: SARA Coding Level of Care Code 27189 IN/OBS CONSULT LVL 4,60M Diagnoses Depression, unspecified F32.A Complicated bereavement F43.21
--- NOTE | 2024-04-13 16:27 | Hospitalist Progress Note ---
Date of Service April 13, 2024 Assessment & Plan (1) Chest pain: (2) Anxiety and depression: (3) Suicidal ideations: (4) Hypothyroidism: (5) Abnormal TSH: (6) HTN (hypertension): (7) HLD (hyperlipidemia): (8) Multiple sclerosis: (9) Chronic pain: (10) Asthma: (11) Interstitial cystitis: (12) Tobacco abuse: (13) GERD (gastroesophageal reflux disease): Plan Patient is 53 year old female with PMH HTN, depression, anxiety, asthma, MS, hypothyroidism, chronic pain on chronic opioids, interstitial cystitis, tobacco use presented to ER with c/o chest pain x 1 day. CP- trop mildly elevated and flat trend. Currently CP free. Seen by cardio. Echo pending. EKG and tele noted. Further recommendations per cardio. On ASA, beta mariano QTc prolongation- seen in EKG. Per psychiatry, discontinue trazodone. Avoid QT prolonging meds. Subclinical hyperthyroidism- wondering if her constellation of symptoms could be related to subclinical hyperthyroidism. She was on 175 mcg of synthroid but no recent labs. Will repeat TSH in am. Recommend to continue to hold synthroid and follow up with PCP as OP regarding when to resume. Might need to see an digital field service technician as OP. Depression/anxiety/Complicated bereavement- currently admitted voluntarily at the [facility] 2 days back. Per psych, hold all meds except for benzodiazepine. No SI and cleared for discharge when medically stable per psych. Per psych- "Diagnostically consistent with unspecified depression likely combination of persistent depressive disorder and complicated bereavement. Acute risk of self-harm is low given denial of active SI, reasons for living, future-oriented, reports some improvement in mood. Chronic risk is moderate given history of past attempts. Would avoid use of any scheduled psychiatric medications given her QTc is >500ms. Ok to use ativan prn as she has been on this for many years, it tends to be much lower risk in terms of QTc prolongation, she finds it beneficial, no concerns for misuse and has taken it safely alongside opioids for many years. She is not interested in inpatient psychiatric treatment and does not meet involuntary criteria. Motivated for additional outpatient mental health resources which psych liason will investigate and provide her information about." HTN- stable, continue lopressor HLD- continue statin MS- Stable, she was never on any medications for MS Tobacco abuse- recommended quitting. Continue nicoderm patch DVT ppx- sc lovenox Dispo- Pending ?ischemic eval per cardio Time spent- approx 40 mins Admission and Anticipated Discharge Date Admission Date: April 12, 2024 Subjective Patient was seen and examined at bedside. She feels better since admission. States she stopped all her meds a week ago and her last dose of synthroid was 4 days back. No fever, chills, CP, SOB, N/V. Review of Systems Review of Systems: All systems reviewed & are unremarkable except as noted in Subjective Physical Exam Physical Exam: General: Lying comfortably in bed, not in distress, on room air HEENT: EOMI, BETY, MMM Chest: Clear breath sounds bilaterally, no wheezes or crackles CVS: Regular rate and rhythm, normal heart sounds, no murmur Abdomen: Soft, non tender, not distended, normal bowel sounds Neuro: Awake, alert, oriented, conversing well, non focal Extremities: No cyanosis, clubbing or edema Results & Data Results & Data Vital Signs (Past 12 Hours) Vital Signs Temp Pulse Pulse Resp BP Pulse Ox O2 Del Method 04/13/24 14:54 94 H 04/13/24 12:13 36.5 C 90 20 138/76 96 Room Air 04/13/24 10:00 101 H 04/13/24 10:00 Room Air 04/13/24 08:12 36.3 C L 91 H 18 117/83 95 Room Air Laboratory Results Short CBC 04/12/24 04/13/24 Range/Units 12:26 06:59 WBC 10.25 8.07 (4.8-10.8) K/ul Hgb 15.2 13.5 (12.0-16.0) g/dl Hct 43.6 38.4 (37.0-47.0) % Plt Count 251 207 (130-400) K/uL BMP 04/12/24 04/13/24 12:26 06:59 Sodium 141 142 Potassium 3.5 3.4 L Chloride 107 110 H Carbon Dioxide 23 24 BUN 18 18 Creatinine 1.09 0.94 Glucose 118 H 100 H Calcium 9.6 8.6 Liver Function 04/12/24 Range/Units 12:26 Total Bilirubin 0.9 (0.2-1.0) mg/dl AST 14 (13-39) U/L ALT 12 (7-52) U/L Alkaline Phosphatase 83 (34-104) U/L Albumin 4.6 (3.4-5.0) gm/dl (1) Chest pain Chest pain type: unspecified Qualified Code(s): R07.9 - Chest pain, unspecified
[2024-04-13] MEDS: LORazepam 1 MG TAB PO SCH (20:16)
[2024-04-14 07:46] LABS: BUN Creatinine Ratio 19.2 (10-20); Calcium 8.9 mg/dl (8.6-10.3); Creatinine Clr Calc Pharmacy 60.1 ml/min; Est GFR (African American) 74.4 ml/min; Est GFR (Non-African American) 64.2 ml/min; Magnesium 1.9 mg/dl (1.7-2.4); Phosphorus 3.7 mg/dl (2.5-4.9); Potassium 3.6 mmol/L (3.5-5.1)
[2024-04-14 08:02] LABS: Thyroid Stimulating Hormone 0.083 uIu/ml (0.300-4.500)
--- NOTE | 2024-04-14 10:45 | Cardiology Progress Note ---
Date of Service April 14, 2024 Assessment & Plan (1) Chest pain: (2) Abnormal TSH: (3) Tobacco abuse: (4) Hypothyroidism: Plan Impression/Plan: 1.Chest Pain 2.Elevated Troponin 3.Prolonged QTC 4.Hypokalemia K 3.4 5.Hypertension-On Metoprolol Tartrate 25 mg BID 6.Tobacco Use- Nicotine Patch in Place. 04/13/24: -Currently chest pain free. She has a significant amount of stress in her life. -She does have a significant family history of CAD, HTN, HLD, and is a 1 PPD smoker. -Plan to discuss possible ischemia evaluation with patient later today. -Avoid QTC prolonging medications. 04/14/24: -Remains chest pain free. Telemetry reviewed: NSR 90s. -BP well controlled, except elevated this morning while upset. -Anxious/tearful this morning. No SI/HI. Reassured her that her heart rates were normal. -Advised her get out of bed and freshen up. Encouraged good sleep hygiene. -Continue ASA, Statin, Metoprolol Tartrate -NPO except medications at 0000. Nuclear stress test tomorrow. Case discussed with Dr. Azul I spent a total of 30 minutes on the date of service in preparation, delivery, and documentation of the care provided to this patient, excluding any time spent in the performance of separately billed services. MAGDALENO Breen Department of Cardiology, [facility] This chart was completed in part utilizing Speech Voice Recognition Software. Grammatical errors, random word insertions, pronoun errors, and incomplete sentences are an occasional consequence of this system due to software limitations, ambient noise, and hardware issues. Any formal questions or concerns about the content, text, or information contained within the body of this dictation should be directly addressed to the provider for clarification. Admission and Anticipated Discharge Date Admission Date: April 12, 2024 Supervising Physician Co-Signing Physician Notes Attending attestation: Case reviewed with the advanced practitioner. I have personally performed a history and physical examination on the patient. I have reviewed the advanced practitioner's documentation on the date of service referenced in note, and I agree with, and take responsibility for the plan of care. Impression/ Plan: Chest pain Depression, complicated bereavement Qt interval prolongation Ambulatory dysfunction related to deconditioning, history of multiple sclerosis diagnosed 2019 -HS troponin mildly elevated. -Resting echocardiogram without any wall motion abnormalities. -Recommend proceeding with a lexiscan nuclear stress test for further risk stratification. I spent a total of 20 minutes coordinating, documenting, and providing care for this patient excluding time spent in the performance of separately billed services or time spent by another provider. Justino Azul, DO Subjective No acute events noted overnight. Patient is anxious this morning. Woke up from a dream feeling like her heart was in her throat. She is tearful. Review of Systems Review of Systems: All systems reviewed & are unremarkable except as noted in HPI & below Physical Exam Constitutional: WD/WN, vitals as above Respiratory: normal respiratory effort, lungs clear to auscultation normal respiratory effort Cardiovascular: RRR, no murmur, no edema Rate/Rhythm: regular rate and regular rhythm Heart Sounds: normal S1 and normal S2 Neurologic: PERRL, EOMI, accommodation nl, no face palsy, no dysarthria Results & Data Vital Signs (Past 12 Hours) Vital Signs Temp Pulse Pulse Resp BP Pulse Ox O2 Del Method 04/14/24 07:54 36.7 C 92 H 16 124/82 94 Room Air 04/14/24 07:40 76 04/14/24 07:40 Room Air 04/14/24 04:02 36.7 C 78 17 114/77 95 Room Air 04/13/24 22:47 36.9 C 80 17 107/70 97 Room Air Laboratory Results Comprehensive Metabolic Panel 04/14/24 Range/Units 06:44 Sodium 141 (136-145) mmol/L Potassium 3.6 (3.5-5.1) mmol/L Chloride 110 H (98-107) mmol/L Carbon Dioxide 23 (21-32) mmol/L BUN 19 (6-23) mg/dl Creatinine 0.99 (0.6-1.2) mg/dl Glucose 103 H (70-99(Fasting)) mg/dl Calcium 8.9 (8.6-10.3) mg/dl Intake and Output 04/13/24 04/14/24 04/14/24 22:59 06:59 14:59 Intake Total 300 / 500 200 / 500 Balance 300 / 500 200 / 500 Intake: Oral 300 / 500 200 / 500 Other: # Unmeasured Voids 2 2 Weight 68.5 kg Weight Measurement Method Built in [facility] Diagnostic Findings EKG 04/13/2024 NSR 85 bpm QTC 509 EKG 04/12/2024 ST 107 bpm Non-specifc ST abnormality (1) Chest pain Chest pain type: unspecified Qualified Code(s): R07.9 - Chest pain, unspecified
--- NOTE | 2024-04-14 13:48 | Hospitalist Progress Note ---
Date of Service April 14, 2024 Assessment & Plan (1) Chest pain: (2) Anxiety and depression: (3) Suicidal ideations: (4) Hypothyroidism: (5) Abnormal TSH: (6) HTN (hypertension): (7) HLD (hyperlipidemia): (8) Multiple sclerosis: (9) Chronic pain: (10) Asthma: (11) Interstitial cystitis: (12) Tobacco abuse: (13) GERD (gastroesophageal reflux disease): Plan Patient is 53 year old female with PMH HTN, depression, anxiety, asthma, MS, hypothyroidism, chronic pain on chronic opioids, interstitial cystitis, tobacco use presented to ER with c/o chest pain x 1 day. Chest pain- trop mildly elevated and flat trend. Currently CP free. Seen by say jara. Echo pending. EKG and tele noted. On ASA, statin, beta mariano. Plan for nuclear stress test tomorrow per cardio. NPO after midnight. QTc prolongation- seen in EKG. Per psychiatry, discontinue trazodone. Avoid QT prolonging meds. Subclinical hyperthyroidism, iatrogenic- TSH 0.056->0.083. T4 normal. Wondering if her constellation of symptoms could be related to subclinical hyperthyroidism. She was on 175 mcg of synthroid but no recent labs. Recommend to continue to hold synthroid and follow up with PCP as OP regarding when to resume. Might need to see an trumpet player as OP. Depression/anxiety/Complicated bereavement- currently admitted voluntarily at the [facility] 2 days back. Per psych, hold all meds except for benzodiazepine. No SI and cleared for discharge when medically stable per psych. Per psych- "Diagnostically consistent with unspecified depression likely combina tion of persistent depressive disorder and complicated bereavement. Acute risk of self-harm is low given denial of active SI, reasons for living, future-oriented, reports some improvement in mood. Chronic risk is moderate given history of past attempts. Would avoid use of any scheduled psychiatric medications given her QTc is >500ms. Ok to use ativan prn as she has been on this for many years, it tends to be much lower risk in terms of QTc prolongation, she finds it beneficial, no concerns for misuse and has taken it safely alongside opioids for many years. She is not interested in inpatient psychiatric treatment and does not meet involuntary criteria. Motivated for additional outpatient mental health resources which psych liason will investigate and provide her information about." HTN- stable, continue lopressor HLD- continue statin MS- Stable, she was never on any medications for MS Tobacco abuse- recommended quitting. Continue nicoderm patch DVT ppx- sc lovenox Dispo- Nuclear stress tomorrow per cardio. Discharge home afterwards if unremarkable Time spent- approx 35 mins Admission and Anticipated Discharge Date Admission Date: April 12, 2024 Subjective Patient was seen and examined at bedside. Ambulated twice around the [place]. Denied any dyspnea, CP, SOB, dizziness. States she had good sleep overnight. States she would not like to restart on her anti depressant medications. She was appreciative for counseling regarding the abnormal TSH and management of her levothyroxine. She is planned for stress test tomorrow and does not plan to go back to the [facility] but is planning to go home from here. Review of Systems Review of Systems: All systems reviewed & are unremarkable except as noted in Subjective Physical Exam Physical Exam: General: Lying comfortably in bed, not in distress, on room air HEENT: EOMI, BETY, MMM Chest: Clear breath sounds bilaterally, no wheezes or crackles CVS: Regular rate and rhythm, normal heart sounds, no murmur Abdomen: Soft, non tender, not distended, normal bowel sounds Neuro: Awake, alert, oriented, conversing well, non focal Extremities: No cyanosis, clubbing or edema Results & Data Results & Data Vital Signs (Past 12 Hours) Vital Signs Temp Pulse Pulse Resp BP Pulse Ox O2 Del Method 04/14/24 11:59 36.9 C 106 H 18 129/92 96 Room Air 04/14/24 07:54 36.7 C 92 H 16 124/82 94 Room Air 04/14/24 07:40 76 04/14/24 07:40 Room Air 04/14/24 04:02 36.7 C 78 17 114/77 95 Room Air Laboratory Results [facility] 04/14/24 06:44 Sodium 141 Potassium 3.6 Chloride 110 H Carbon Dioxide 23 BUN 19 Creatinine 0.99 Glucose 103 H Calcium 8.9 (1) Chest pain Chest pain type: unspecified Qualified Code(s): R07.9 - Chest pain, unspecified
--- NOTE | 2024-04-14 16:35 | Communication Note ---
Date of Service: April 14, 2024 Repeat EKG performed for sensation of "chest burning "and palpitations after going for a short walk. Tracing reviewed/interpreted independently: Sinus rhy thm 86 bpm, artifact noted in V6. No significant repolarization abnormalities. QT interval is prolonged with corrected QT interval 485 but improved compared to previous. Stable EKG. Continue present plan for stress test tomorrow.
[2024-04-14] MEDS: LORazepam 0.5 MG TAB PO ONE (21:12)
--- NOTE | 2024-04-15 12:17 | Hospitalist Progress Note ---
Date of Service April 15, 2024 Assessment & Plan (1) Chest pain: (2) Anxiety and depression: (3) Hypothyroidism: (4) Abnormal TSH: (5) HTN (hypertension): (6) HLD (hyperlipidemia): (7) Multiple sclerosis: (8) Chronic pain: (9) Asthma: (10) Interstitial cystitis: (11) Tobacco abuse: (12) GERD (gastroesophageal reflux disease): Plan Patient is 53 year old female with PMH HTN, depression, anxiety, asthma, MS, hypothyroidism, chronic pain on chronic opioids, interstitial cystitis, tobacco use presented to ER with c/o chest pain x 1 day. Chest pain- trop mildly elevated and flat trend. Currently CP free. Seen by cardio. Echo unremarkable. EKG and tele noted. On ASA, statin, beta mariano. Plan for nuclear stress test today per cardio. NPO for the same. QTc prolongation- seen in EKG, Improved to 485 on repeat EKG. Avoid QT prolonging meds. Subclinical hyperthyroidism, iatrogenic- TSH 0.056->0.083. T4 normal. Wondering if her constellation of symptoms could be related to subclinical hyperthyroidism. She was on 175 mcg of synthroid but no recent labs. Recommend to continue to hold synthroid and follow up with PCP as OP regarding when to resume. Might need to see an underpresser hand as OP. Depression/anxiety/Complicated bereavement- Per psych, hold all meds except for benzodiazepine. No SI and cleared for discharge home when medically stable per p sych. Per psych- "Diagnostically consistent with unspecified depression likely combination of persistent depressive disorder and complicated bereavement. Acute risk of self-harm is low given denial of active SI, reasons for living, future-oriented, reports some improvement in mood. Chronic risk is moderate given history of past attempts. Would avoid use of any scheduled psychiatric medications given her QTc is >500ms. Ok to use ativan prn as she has been on this for many years, it tends to be much lower risk in terms of QTc prolongation, she finds it beneficial, no concerns for misuse and has taken it safely alongside opioids for many years. She is not interested in inpatient psychiatric treatment and does not meet involuntary criteria. Motivated for additional outpatient mental health resources which psych liason will investigate and provide her information about." HTN- stable, continue lopressor HLD- continue statin MS- Stable, she was never on any medications for MS Tobacco abuse- recommended quitting. Continue nicoderm patch DVT ppx- sc lovenox Dispo- Pending Nuclear stress test. Time spent- approx 35 mins Admission and Anticipated Discharge Date Admission Date: April 14, 2024 Subjective Patient was seen and examined at bedside. Still with some dyspnea with exertion. No other issues. No chest pain, shortness of breath, nausea or vomiting. Review of Systems Review of Systems: All systems reviewed & are unremarkable except as noted in Subjective Physical Exam Physical Exam: General: Lying comfortably in bed, not in distress, on room air HEENT: EOMI, BETY, MMM Chest: Clear breath sounds bilaterally, no wheezes or crackles CVS: Regular rate and rhythm, normal heart sounds, no murmur Abdomen: Soft, non tender, not distended, normal bowel sounds Neuro: Awake, alert, oriented, conversing well, non focal Extremities: No cyanosis, clubbing or edema Results & Data Results & Data Vital Signs (Past 12 Hours) Vital Signs Temp Pulse Pulse Resp BP Pulse Ox O2 Del Method 04/15/24 10:02 Room Air 04/15/24 08:13 36.6 C 82 20 128/81 95 Room Air 04/15/24 07:31 77 04/15/24 03:20 36.8 C 78 18 114/76 94 Room Air (1) Chest pain Chest pain type: unspecified Qualified Code(s): R07.9 - Chest pain, unspecified
[2024-04-15] MEDS: REGADENOSON 0.4 MG/5 ML SYR IV ONE (12:28)
[2024-04-15] MEDS: LORazepam 1 MG TAB PO STA (12:36)
--- NOTE | 2024-04-15 12:58 | Myocardial Perfusion Study ---
Date of Service April 15, 2024 Myocardial Perfusion Study [facility] Myocardial Perfusion Study Report Indication: Atypical chest pain, mildly elevated high-sensitivity troponin. Procedure: Patient performed stress test according to Lexiscan protocol for 3 minutes and 2 seconds. Achieving a workload of 1.0 METS. Resting heart rate of 86 bpm keny to a maximal heart rate of 109 bpm. This value represents 66% of the maximal, age-predicted heart rate. The resting blood pressure of 153/81 r ose to a maximum blood pressure of 153/81. Stress testing was stopped due to completion of protocol. Normal heart rate and blood pressure response to Lexiscan infusion. Symptoms: Shortness of breath, nausea. Resting ECG: Normal sinus rhythm, normal ECG. Stress ECG: No ischemia. Nuclear imaging: For the stress portion of the study 33.8 mCi of technetium 99m Cardiolite was injected at 11:10 AM on 04/15/2024. 30 minutes following the injection, imaging of the heart was performed in multiple projections. For the rest portion of the study 11.0 mCi of Tc 99m Cardiolite was injected at 9:30 AM. 1 hour following the injection, imaging of the heart was performed in the same projections. Raw data: Significant small bowel uptake of isotope of tracer noted on stress rotating raw data images. Otherwise, no significant extracardiac uptake of tracer visualized. Right ventricle: Not well-visualized. Resting images: Normal perfusion. Stress images: Normal perfusion. Gated SPECT imaging: Normal left ventricular cavity size at rest. Normal left ventricular myocardial wall thickening and wall motion. Calculated left ventricular ejection fraction is 71% Conclusion: 1. Normal Lexiscan myocardial nuclear perfusion imaging study without evidence of inducible ischemia, or myocardial scar. 2. Normal gated SPECT imaging. 3. Calculate left ventricular ejection fraction 71%.
--- NOTE | 2024-04-15 13:04 | Cardiology Progress Note ---
Date of Service April 15, 2024 Assessment & Plan (1) Chest pain: (2) Elevated troponin I level: (3) Tobacco abuse: Plan Recommend Lexiscan nuclear stress test for further restratification. Potential side effects of Lexiscan reviewed. Patient is agreeable to proceed. Further recommendations pending review. Mildly prolonged QT noted. Replace electrolytes as needed to maintain serum potassium greater than 4.0, and serum magnesium greater than 2.0. Continue current medications including low-dose aspirin, metoprolol tartrate, and atorvastatin. Smoking cessation advised. Addendum: Lexiscan nuclear stress test negative for inducible ischemia. No further inpatient cardiac testing or intervention recommended at this time. Continue current medications. Cardiology will sign off. Please call with additional concerns/questions. I spent a total of 50 minutes on the date of service in preparation, delivery, and documentation of the care provided to this patient, excluding any time spent in the performance of separately billed services. Admission and Anticipated Discharge Date Admission Date: April 14, 2024 Subjective 53-year-old female admitted with chest discomfort. Mildly elevated high- sensitivity troponin without ischemic ECG changes. Chest pain-free this morning. Denies shortness of breath. Telemetry revealing sinus rhythm in the 70s to 80s. Review of Systems Review of Systems: All systems reviewed & are unremarkable except as noted in Subjective Physical Exam Constitutional: well nourished; no acute distress Respiratory: no respiratory distress, no labored breathing and no retractions Auscultation: lungs clear to auscultation bilaterally; no crackles, no rales and no rhonchi Cardiovascular: Rate/Rhythm: regular rate and regular rhythm Heart Sounds: normal S1 and normal S2; no murmur Extremities: no edema Gastrointestinal (Abdomen): Inspection/Auscultation: abdomen normal to inspection and normal bowel sounds; abdomen not distended Percussion/Palpation: abdomen soft; abdomen nontender, no guarding and abdomen not rigid Neurologic: CN's II-XI intact bilaterally and moves all extremities Results & Data Vital Signs (Past 12 Hours) Vital Signs Temp Pulse Pulse Pulse Resp BP Pulse Ox 04/15/24 12:14 36.8 C 88 18 130/87 96 04/15/24 10:02 04/15/24 08:13 36.6 C 82 20 128/81 95 04/15/24 07:31 77 04/15/24 03:20 36.8 C 78 18 114/76 94 O2 Del Method 04/15/24 12:14 Room Air 04/15/24 10:02 Room Air 04/15/24 08:13 Room Air 04/15/24 07:31 04/15/24 03:20 Room Air Laboratory Results Intake and Output 04/14/24 04/15/24 04/15/24 22:59 06:59 14:59 Intake Total 600 / 900 300 / 900 Balance 600 / 900 300 / 900 Intake: Oral 600 / 900 300 / 900 Other: # Unmeasured Voids 1 2 Weight 67.3 kg Weight Measurement Method Built in [facility] (1) Chest pain Chest pain type: unspecified Qualified Code(s): R07.9 - Chest pain, unspecified
--- NOTE | 2024-04-15 14:33 | Discharge Summary ---
Date of Service April 15, 2024 Admission HPI Per Admitting Provider Patient is 53 year old female with PMH HTN, depression, anxiety, asthma, MS, hypothyroidism, chronic pain on chronic opioids, interstitial cystitis, tobacco use presented to ER with c/o chest pain x 1 day. History obtained from patient and outpatient chart review. Patient reports SOB with exertion x 6 months that She feels is secondary to sedentary lifestyle. Patient states yesterday [facility] her boyfriend. She states while driving they got lost several times and her boyfriend was becoming angry. She reports she started to get anxious and started having left chest squeezing and felt that her neck was "being pulled down". She also felt like her heart was pounding. She denies noting irregular rhythm sensation. She states police escorted them to the [facility]. Patient reports has had intermittent episodes of heart pounding and squeezing sensation to left chest since being at the [facility] last night which continued this morning. She told staff this morning and they recommended ER evaluation. Denies history chest pain in past. Patient unsure of cardiac history or cardiac diagnoses but states was placed on metoprolol tartrate by PCP for what she believes as blood pressure control. Patient states one week ago she decided to stop taking all her medication. She reports history depression and suicidal ideations and behaviors in past. Per outpatient records history of Seroquel overdose as suicide attempt in past. Patient reports son one year ago. After that describes panic attacks with squeezing sensation of neck and feeling very anxious. Reports has counselor and states has worked through things and hasn't been feeling as anxious. She is on lorazepam TID and states over past several months has been using at bedtime only. Reports past 6 months with worsening depression. Feels down and sad. Intermittent crying. Loss of interest in doing things. Has been sitting or lying in bed all day. Only gets up to use bathroom. She has reports has only been showering once a month. States spoke to her counselor yesterday and decided to seek treatment at the [facility] for depression. Patient states she checked herself into the [facility] yesterday. She states she often feels that she wants to and wants to be with her son. She denies any recent suicide attempt and denies any recent or current plan to harm herself. Patient reports chronic right ankle pain and chronic suprapubic pain and is on oxycodone TID. States has chronic wheezing. Denies fever/chills, diaphoresis, N/V/D/C, KIMBROUGH, dizziness, syncope, vision changes, orthopnea, cough, sore throat, choking, otalgia, rhinorrhea, increased abdominal pain, paresthesias, weakness, extremity edema, rashes, hematuria, urinary frequency. Admission Exam Per Admitting Provider General: no distress, WDWN Head: normocephalic, atraumatic Eyes: PERRL, EOM's intact, conjunctiva non-injected, anicteric ENT: normal inspection external ears, nose, mucous membranes moist Neck: supple, trachea midline, non-tender Lungs: clear, no respiratory distress, no wheezing/rhonchi/rales CV: +regular rhythm +tachycardia rate 102, no murmur, no pretibial edema Chest wall: no skin discoloration, +tenderness to palpation left chest wall Abd: normal BS, soft, non-tender Ext: no cyanosis, no calf tenderness Neuro: A&O x 3, no focal deficits noted, +anxious affect, becomes tearful Skin: warm, dry Principal Diagnosis Chest pain, Abnormal TSH, Complicated bereavement Discharge Exam General: Lying comfortably in bed, not in distress, on room air HEENT: EOMI, BETY, MMM Chest: Clear breath sounds bilaterally, no wheezes or crackles CVS: Regular rate and rhythm, normal heart sounds, no murmur Abdomen: Soft, non tender, not distended, normal bowel sounds Neuro: Awake, alert, oriented, conversing well, non focal Extremities: No cyanosis, clubbing or edema Discharge Data Allergies Allergy/AdvReac Type Severity Reaction Status Date / Time sumatriptan [From Imitrex] Allergy Chest Pain Verified 04/12/24 15:23 morphine AdvReac agitation Verified 04/12/24 16:40 sulfamethoxazole AdvReac nausea, Verified 04/12/24 15:23 [From vomiting Sulfamethoxazole-Trimethoprim] trimethoprim AdvReac nausea, Verified 04/12/24 15:23 [From vomiting Sulfamethoxazole-Trimethoprim] Consultations 04/12/24 15:13 ED Decision to Admit Stat 04/12/24 18:43 Consult Cardiology Routine Consult Psychiatry Routine Laboratory Results WBC 8.07 K/ul (4.8-10.8) 04/13/24 06:59 RBC 4.11 M/uL (4.20-5.40) L 04/13/24 06:59 Hgb 13.5 g/dl (12.0-16.0) 04/13/24 06:59 Hct 38.4 % (37.0-47.0) 04/13/24 06:59 MCV 93.4 fL (80.0-100.0) 04/13/24 06:59 MCH 32.8 pg (25.0-34.0) 04/13/24 06:59 MCHC 35.2 g/dL (32.0-36.0) 04/13/24 06:59 RDW Std Deviation 39.5 fL (36.4-46.3) 04/13/24 06:59 RDW Coeff of Jaky 11.6 % (11.5-14.5) 04/13/24 06:59 Plt Count 207 K/uL (130-400) 04/13/24 06:59 MPV 9.7 fL (9.4-12.4) 04/13/24 06:59 Immature Gran % (Auto) 0.9 % 04/12/24 12:26 Neut % (Auto) 45.9 % 04/12/24 12:26 Lymph % (Auto) 40.9 % 04/12/24 12:26 Hays % (Auto) 10.0 % 04/12/24 12:26 Eos % (Auto) 1.3 % 04/12/24 12:26 Baso % (Auto) 1.0 % 04/12/24 12:26 Neut # (Auto) 4.71 K/uL (1.40-6.50) 04/12/24 12:26 Lymph # (Auto) 4.19 K/uL (1.20-3.40) H 04/12/24 12:26 Hays # (Auto) 1.03 K/uL (0.11-0.59) H 04/12/24 12:26 Eos # (Auto) 0.13 K/uL (0.00-0.50) 04/12/24 12:26 Baso # (Auto) 0.10 K/uL (0.00-0.20) 04/12/24 12:26 Immature Gran # (Auto) 0.09 K/uL (0.01-0.20) 04/12/24 12:26 PT 13.1 Seconds (9.0-12.0) H 04/12/24 12:26 INR 1.2 (0.9-1.1) H 04/12/24 12:26 APTT 26 Seconds (21-31) 04/12/24 12:26 PTT Ratio 1.0 04/12/24 12:26 D-Dimer < 190 ug/L FEU (0-500) 04/12/24 16:49 Sodium 141 mmol/L (136-145) 04/14/24 06:44 Potassium 3.6 mmol/L (3.5-5.1) 04/14/24 06:44 Chloride 110 mmol/L (98-107) H 04/14/24 06:44 Carbon Dioxide 23 mmol/L (21-32) 04/14/24 06:44 Anion Gap 8 (3-11) 04/14/24 06:44 BUN 19 mg/dl (6-23) 04/14/24 06:44 Creatinine 0.99 mg/dl (0.6-1.2) 04/14/24 06:44 Est Cr Clr Drug Dosing 60.1 ml/min 04/14/24 06:44 Est GFR ( Amer) 74.4 ml/min 04/14/24 06:44 Est GFR (Non-Af Amer) 64.2 ml/min 04/14/24 06:44 BUN/Creatinine Ratio 19.2 (10-20) 04/14/24 06:44 Glucose 103 mg/dl (70-99(Fasting)) H 04/14/24 06:44 Calcium 8.9 mg/dl (8.6-10.3) 04/14/24 06:44 Phosphorus 3.7 mg/dl (2.5-4.9) 04/14/24 06:44 Magnesium 1.9 mg/dl (1.7-2.4) 04/14/24 06:44 Total Bilirubin 0.9 mg/dl (0.2-1.0) 04/12/24 12:26 AST 14 U/L (13-39) 04/12/24 12:26 ALT 12 U/L (7-52) 04/12/24 12:26 Alkaline Phosphatase 83 U/L (34-104) 04/12/24 12:26 Troponin I High Sens 17.1 pg/ml (0-14) H D 04/13/24 06:59 Total Protein 8.0 gm/dl (6.0-8.3) 04/12/24 12:26 Albumin 4.6 gm/dl (3.4-5.0) 04/12/24 12:26 Globulin 3.4 gm/dl (2.5-4.0) 04/12/24 12:26 Albumin/Globulin Ratio 1.4 (0.9-2) 04/12/24 12:26 Triglycerides 283 mg/dl (0-150) H 04/13/24 06:59 Cholesterol 147 mg/dl (0-200) 04/13/24 06:59 LDL Cholesterol, Calc 65 mg/dl 04/13/24 06:59 VLDL Cholesterol, Calc 57 mg/dl (0-30) H 04/13/24 06:59 HDL Cholesterol 25 mg/dl 04/13/24 06:59 Cholesterol/HDL Ratio 5.9 (0-5) H 04/13/24 06:59 TSH 0.083 uIu/ml (0.300-4.500) L 04/14/24 06:44 Free T4 1.20 ng/dl (0.61-1.60) 04/12/24 16:49 Impressions Chest X-Ray 04/12/24 00:00 XR chest 1V portable Genie Riddle CLINICAL HISTORY: Chest pain TECHNIQUE: Single frontal radiograph of the chest was obtained. Comparison: None available at the time of this dictation. FINDINGS: No lines and tubes are seen. The cardiomediastinal silhouette is normal. The lungs are clear. No evidence of pleural effusion or pneumothorax. IMPRESSION: No acute chest disease. ACT 112: Negative or not required by law. Electronically signed by: Kayden Walsh M.D. 04/12/2024 12:52 PM Hospital Course (1) Chest pain: (2) Anxiety and depression: (3) Hypothyroidism: (4) Abnormal TSH: (5) HTN (hypertension): (6) HLD (hyperlipidemia): (7) Multiple sclerosis: (8) Chronic pain: (9) Asthma: (10) Interstitial cystitis: (11) Tobacco abuse: (12) GERD (gastroesophageal reflux disease): Plan Patient is 53 year old female with PMH HTN, depression, anxiety, asthma, MS, hypothyroidism, chronic pain on chronic opioids, interstitial cystitis, tobacco use presented to ER with c/o chest pain x 1 day. Chest pain- trop mildly elevated and flat trend. Currently CP free. Seen by cardio. Echo unremarkable. EKG and tele noted. On ASA, statin, beta mariano. Nuclear stress test today was negative for inducible ischemia and did not recommend further cardiac testing or intervention. Continue aspirin, statin, beta mariano. QTc prolongation- seen in EKG, Improved to 485 on repeat EKG. Avoid QT prolonging meds. Subclinical hyperthyroidism, iatrogenic- TSH 0.056->0.083. T4 normal. Wondering if her constellation of symptoms could be related to subclinical hyperthyroidism. She was on 175 mcg of synthroid but no recent labs. Recommend to continue to hold synthroid and follow up with PCP as OP regarding when to r esume. Might need to see an cupola charger insulation as OP. Depression/anxiety/Complicated bereavement- Per psych, hold all meds except for benzodiazepine. No SI and cleared for discharge home when medically stable per psych. She is relieved to be off of all those antidepressants. Per psych- "Diagnostically consistent with unspecified depression likely combination of persistent depressive disorder and complicated bereavement. Acute risk of self-harm is low given denial of active SI, reasons for living, future-oriented, reports some improvement in mood. Chronic risk is moderate given history of past attempts. Would avoid use of any scheduled psychiatric medications given her QTc is >500ms. Ok to use ativan prn as she has been on this for many years, it tends to be much lower risk in terms of QTc prolongation, she finds it beneficial, no concerns for misuse and has taken it safely alongside opioids for many years. She is not interested in inpatient psychiatric treatment and does not meet involuntary criteria. Motivated for additional outpatient mental health resources which psych liason will investigate and provide her information about." HTN- stable, continue lopressor HLD- continue statin MS- Stable, she was never on any medications for MS Tobacco abuse- recommended quitting. She is comfortable and stable for discharge home. Reviewed the discharge recommendations. was at bedside. She states she has zoom appointment wi th her PCP ophelia and is going to discuss all these issues with him. Total Time Total Time Spent Total Time Spent (In Minutes): 40 Discharge Plan Discharge Items Patient Disposition: Home - Self-Care Reason For Visit: CP Discharge Diagnosis: Chest pain, abnormal TSH, Anxiety/complicated bereavement Activity: Resume your previous activity Non-emergency contact: Primary Care Provider Call non-emergency contact if: you have any medication questions and your symptoms worsen Follow-up/Referrals: Jordan Castorena MD [Outside Practitioners] - 04/22/24 11:00 am Diet: Heart Healthy Addtl Attending Provider Instructions: Your TSH is still very low. Recommend holding your levothyroxine for now and follow up with PCP with repeat TSH, T4 in 10-14 days and discuss further management of your thyroid condition. Your stress test was negative. We wish you all the best. Pending Studies at Discharge: No Stand-Alone Forms: My [facility], Smoking Cessation Medications and DC Order Prescriptions: Continued atorvastatin 40 mg tablet 40 mg PO DAILY Elmiron 100 mg capsule 100 mg PO BID fluticasone propion-salmeterol 250-50 mcg/dose blister with device 1 inh INHALATION DAILY lorazepam 0.5 mg tablet 0.5 mg PO TID estradiol 2 mg tablet 2 mg PO DAILY albuterol sulfate 90 mcg/actuation HFA aerosol inhaler 2 puff INHALATION Q4H cholecalciferol (vitamin D3) 1,250 mcg (50,000 unit) capsule 50,000 unit PO WK Rx Instructions: Sundays oxycodone 10 mg tablet 20 mg PO QID Combivent Respimat 20-100 mcg/actuation mist 2 puff INHALATION BID aspirin 81 mg Capsule 81 mg PO DAILY Changed metoprolol tartrate 50 mg tablet 25 mg PO BID Qty: 0 0RF Held levothyroxine 175 mcg tablet 175 mcg PO DAILY Hold Instructions: Resume on 04/27/24. until the TSH comes back to normal and until your doctor clears you to start it. You might need a lower dose Discontinued bupropion HCl 150 mg tablet sustained-release 12 hr 150 mg PO BID citalopram 40 mg tablet 40 mg PO DAILY Discharge Orders: Discharge Order (Routine); Ordered 04/15/24 Ordered By: Giovanny Pablo/Other Patient Handouts: Unstable Angina, Understanding High Blood Pressure, Heart Disease Risks Fem Admission Data Admit Date/Time: 04/14/24 16:57 Attending Provider: Giovanny Irwin Admit Provider: Carlos Umana Primary Care Provider: PCP,NO Other Providers: Carlos Umana; Justino Azul; Joanna Jacome; Sly Garcia; Justino Hargrove Jr; Saida Renee; Radha Limon; Diego Boyd Other Interventions: Discharge Summary Assessment (RN) Last Done: 04/15/24 14:30
== END 2024-04-15 15:10 | disposition home or self-care (01) | DRG 313 ==
LOC: 2E 13:57 → ED 13:57 → SUATTDRO 16:25 → 2E 18:17